=== PATIENT | female | born 1965 | race Caucasian/White ===

== ENCOUNTER 2018-08-02 17:24 | Emergency (ER) | payer OTHER ==
--- NOTE | 2018-08-04 11:52 | UC ---
Discharge - Sign-Out/Discharge Documenting (check all that apply): Post-Discharge Follow Up All imaging exams completed and their final reports reviewed: No Studies - Discharge Plan Condition: Stable Disposition: LEFT WITHOUT BEING SEEN Referrals: Sav Hamm MD [Primary Care Provider] - - Billing Disposition and Condition Condition: STABLE Disposition: Left Without Being Seen
== END 2018-08-02 17:48 | disposition left against medical advice (07) ==
LOC: UCEAST 17:24

== ENCOUNTER 2019-02-02 13:14 | Emergency (ER) | payer OTHER ==
--- OUTSIDE RECORDS SUMMARY | 2019-02-02 13:21 | XMS REPORT | Continuity of Care Document ---
:1965 External Reference #:[id number] Author Name Apple Hedrick Care Team Providers Name Role Phone Sav Hamm III, MD Primary Care Physician Unavailable Payers Date Identification Numbers Payment Provider Subscriber Effective: 2012 Policy Number: [id number] [employer] Number: [id number] [id number] PayID: [id number] [place] [address] Expires: 2012 Policy Number: [id number] [facility] [employer] Number: [id number] [address] PayID: [id number] [place] [address] Advance Directives Description No Information Available Problems Date Description Provider Status Onset: 08/26/2016 Pain in right foot Sotero ESPINOZA Faustin Active Onset: 08/19/2017 Pure hypercholesterolemia Sav Hamm M.D. Active Onset: 08/19/2017 Low back pain Sav Hamm M.D. Active Onset: 10/20/2017 Localized, primary osteoarthritis Nneka Park MD Active of the pelvic region and thigh Onset: 01/08/2018 Obstructive sleep apnea syndrome Chely Brennan DNP, Active RN, DAYANARA-BC Onset: 01/08/2018 Malaise and fatigue Chely Brennan DNP, Active RN, BAND TUMBLER-BC Onset: 03/18/2018 Trochanteric bursitis Nneka Park MD Active Onset: 03/18/2018 Other specific joint derangements Nneka Park MD Active of right hip, not elsewhere classified Onset: 03/19/2018 Acquired hallux rigidus Tobi Hedrick MD Active Onset: 11/03/2011 Acute upper respiratory infection Sav Hamm M.D. Inactive Inactive: 08/26/2016 Onset: 02/04/2012 Shoulder joint pain Sav Hamm M.D. Inactive Inactive: 08/26/2016 Onset: 07/12/2012 Malaise and fatigue Sav Hamm M.D. 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 Tobacco Use Start: Unknown Never Smoked Cigarettes ETOH Use Rarely consumes alcohol Tobacco Use Start: Unknown Patient has never smoked Recreational Drug Use Denies Drug Use Smoking Status Reviewed: 01/27/19 Patient has never smoked Exercise Type/Frequency Exercises regularly Allergies, Adverse Reactions, Alerts Date Description Reaction Status Severity Comments 05/23/2008 Sulfa Active Medications Medication Date Status Form Strength Qnty SIG Indications Ordering Provider No Active 08/04 Active Unknown Medications Omeprazole 06/[address] 20mg 30cap 1 by mouth R10.9 Milad /2017 s once daily ESPINOZA Celaya - 08/03 Azithromycin 04/08 Hx Tablets 250mg 6tabs two tabs J02.9 day one, Varn, N.P. - one daily 04/18 till Astepro 04/08 Hx Solution 0.15% 30ml 2 J02.9 inhalations Varn, N.P. - in each 08/03 nostril twice daily Nitrofurantoin 01/08 Hx Capsules 100mg 14cap 1 by mouth N39.0 Cheryl Monohyd s twice a day Paul, - x 7 days M.D. 03/01 Valium 12/01 Hx Tablets 5mg 2tabs take 1-2 tabs 30 min MD Xavier - prior to 01/07 Blood Glucose 03/31 Hx Kit W/Device 1unit check blood R42 Milad Monitoring /2015 s sugar at ESPINOZA Celaya System - least twice 01/07 daily. 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 Hyclate /2014 by mouth x1 Tung Hamm M.D. 05/03 Fluticasone 06/15 Hx Suspension 50mcg/Act 1unit 1 squirts 473.8 Barbara Propionate s Tung Obrien nostril qd M.DRicardo 06/08 prn /2017 Clarithromycin 05/23 Hx Tablets 500mg 20tab 1 po bid 461.0 Barbara /2012 Tung Moody M.D. 06/15 Azithromycin 11/05 Hx Tablets 250mg 6tabs 2 tabs po 466.0 Mary Jo /2011 qd x1 day, Jp, - 1 tab po qd N.P. 08 x 4 days /2012 Prednisone 11/05 Hx Tablets 10mg 30tab 5 tab x2 466.0 Mary Jo /2011 s day, 4 tab Jp, - x 2day, 3 N.P. 08 tab x day, 2 tab x2 day, 1 tab x 2day Cheratussin ac 11/02 Hx Syrup 100-10mg/ 236ml 5-10 ml po 465.9 Mary Jo /2011 5ML q4-6h prn Jp, - N.P. 05/23 Proair HFA 11/02 Hx Aerosol 108(90Bas 1inha 2 puffs 465.9 Mary Jo /2011 e) mcg/ac ler inhaled Jp, - q4-6h prn N.P. 05/23 Tessalon Perles 11/02 Hx Capsules 100mg 20cap 100 mg po 465.9 Mary Jo /2011 s tid prn Jp, - N.PRicardo 05/23 Amoxicillin 09/07 Hx Tablets 500mg 30tab 1 po tid Sav Daniels s for 10 days Tung Hamm M.D. 09/17 Valium 04/06 Hx Tablets 5mg 2tabs 1 tablet 1 Dir hour prior Fazal, - to mri march Nesha 08/27 take second if needed Amoxicillin/Cla 11/03 Hx Tablets 500-125mg 20tab 1 po bid 465.9 Sav Daniels vulanate Vanessa Price M.D. 02/03 Fexofenadine 03/18 Hx Tablets 180mg 90tab 1 po qd prn Sav Daniels Tung Price M.D. 08/27 Zithromax Z-Vimal 01/09 Hx Tablets 250mg 1Pack as per Sav Daniels /2009 directions Tung Hamm M.D. 11/03 Tessalon Perles 01/09 Hx Capsules 100mg 30cap 1-2 po tid Sav Daniels s prn Tung Hamm M.D. 11/03 Pre- 08/01 Hx Tablets qd Sav Daniels Tung Hamm M.D. 01/04 Nasonex Hx Suspension 50mcg/Act 1unit 2 Sprays Sav Daniels / s Both Tung Hamm Nostrils angela Jeffries 05/23 Naproxen Hx Tablets 500mg 90tab 1 PO bid Berry, / s MD Beto - 06/14 Flexeril Hx Tablets 10mg 30tab 1 PO tid Berry, / s prn MD Beto - 06/14 Advil Hx Tablets 200mg 2 PO bid Unknown / prn - 06/08 Glucolax Hx as Directed Unknown /0000 Every Other - Day 01/[address] 90cap 1 po qd Unknown /0000 s - 04/02 Faby Allergy / Hx Tablets 60mg 30tab 1 po qd prn Unknown /0000 s - 06/08 Astepro Hx Solution 0.15% one puff Unknown /0000 both sides - once per Guaifenesin-Cod Hx Solution 100-10mg/ As per [facility] Unknown eine /0000 [facility] - visit on 08/0111/24/15 for c/o cough [Bronchitis ]. Medications Administered in Office Medication Date Status Form Strength Qnty SIG Indications Ordering Provider Triamcinolone 10/26/ Administered Injection Tobi (Kenalog) 2017 MD Ryley Triamcinolone 10/26/ Administered Injection Tobi (Kenalog) 2017 MD Ryley Triamcinolone 09/28/ Administered Injection Zaneb (Kenalog) 2017 MD Xavier Triamcinolone 03/18/ Administered Injection Zaneb (Kenalog) 2017 MD Xavier Depomedrol 80MG 06/29/ Administered Injection Apple 2011 ALIZA Guajardo Immunizations CPT Code Status Date Vaccine Lot # 53824 Given 08/19/2017 Influenza Virus Vaccine, Quadrivalent, Split, [id number] Preservative Free Q2035 Given 09/12/2015 Afluria Vaccine [id number] Given 06/16/2014 Tetanus And Diptheria (Td) For Adult Use Preservative Free 24188 Given 10/11/2013 Flu Vaccine Split Virus Preservative Free For [id number] Indiv [id number] Older Q2038 Given 08/27/2012 Fluzone Vaccine [id number] Vital Signs Date Vital Result Comment 01/27/2019 1:37pm Height 66 inches 5'6" Weight 139.00 lb Heart Rate 73 /min BP Systolic Sitting 106 mmHg BP Diastolic Sitting 72 mmHg Body Temperature 98.3 F O2 % BldC Oximetry 96 % BMI (Body Mass Index) 22.4 kg/m2 10/26/2018 1:10pm Height 66 inches 5'6" Heart Rate 72 /min BP Systolic 130 mmHg BP Diastolic 78 mmHg Body Temperature 97.7 F Pain Level 0 09/28/2018 2:28pm Height 66 inches 5'6" Weight 145.00 lb BP Systolic 110 mmHg BP Diastolic 64 mmHg Respiratory Rate 18 /min Pain Level 1 BMI (Body Mass Index) 23.4 kg/m2 09/13/2018 1:07pm Height 65.5 inches 5'5.50" Weight 142.00 lb Heart Rate 68 /min Respiratory Rate 15 /min Body Temperature 96.3 F Pain Level 2 BMI (Body Mass Index) 23.3 kg/m2 08/04/2018 8:45am Height 65.5 inches 5'5.50" Weight 142.12 lb Heart Rate 68 /min BP Systolic Sitting 108 mmHg Lue reg cuff BP Diastolic Sitting 72 mmHg Lue reg cuff Respiratory Rate 18 /min O2 % BldC Oximetry 98 % On Ra BMI (Body Mass Index) 23.3 kg/m2 06/28/2018 3:40pm Height 65.5 inches 5'5.50" Weight 142.00 lb Heart Rate 70 /min BP Systolic Sitting 108 mmHg BP Diastolic Sitting 72 mmHg O2 % BldC Oximetry 96 % BMI (Body Mass Index) 23.3 kg/m2 06/08/2018 11:31am Height 65.5 inches 5'5.50" Weight 144.75 lb Heart Rate 70 /min BP Systolic 94 mmHg BP Diastolic 62 mmHg Body Temperature 97.5 F O2 % BldC Oximetry 97 % BMI (Body Mass Index) 23.7 kg/m2 04/08/2018 9:38am Weight 142.00 lb Heart Rate 66 /min BP Systolic 112 mmHg BP Diastolic 68 mmHg Body Temperature 97.9 F O2 % BldC Oximetry 99 % 03/19/2018 8:34am Height 66 inches 5'6" Weight 140.00 lb Heart Rate 72 /min BP Systolic 104 mmHg BP Diastolic 68 mmHg Respiratory Rate 12 /min Body Temperature 97.4 F BMI (Body Mass Index) 22.6 kg/m2 03/18/2018 8:19am Height 66 inches 5'6" Weight 145.00 lb BP Systolic 114 mmHg BP Diastolic 66 mmHg Respiratory Rate 20 /min Pain Level 0 BMI (Body Mass Index) 23.4 kg/m2 03/02/2018 8:21am Height 66 inches 5'6" Weight 144.00 lb Heart Rate 68 /min BP Systolic Sitting 122 mmHg Rue reg cuff BP Diastolic Sitting 80 mmHg Rue reg cuff Respiratory Rate 16 /min O2 % BldC Oximetry 98 % On Ra BMI (Body Mass Index) 23.2 kg/m2 01/19/2018 2:51pm Height 66 inches 5'6" Weight 145.00 lb BP Systolic 124 mmHg BP Diastolic 70 mmHg Respiratory Rate 18 /min Pain Level 2 BMI (Body Mass Index) 23.4 kg/m2 01/08/2018 9:08am Height 66 inches 5'6" Weight 145.25 lb no shoes Heart Rate 68 /min BP Systolic Sitting 110 mmHg Lue reg cuff BP Diastolic Sitting 74 mmHg Lue reg cuff Respiratory Rate 16 /min Body Temperature 98.0 F O2 % BldC Oximetry 98 % On Ra BMI (Body Mass Index) 23.4 kg/m2 12/08/2017 1:56pm Height 66 inches 5'6" Weight 135.00 lb per pt Heart Rate 52 /min reg BP Systolic Sitting 100 mmHg Lue BP Diastolic Sitting 70 mmHg Lue Respiratory Rate 16 /min Pain Level 7 B/L hips BMI (Body Mass Index) 21.8 kg/m2 11/02/2017 9:03am Height 66 inches 5'6" Weight 146.00 lb Heart Rate 72 /min BP Systolic Sitting 112 mmHg BP Diastolic Sitting 72 mmHg Respiratory Rate 14 /min O2 % BldC Oximetry 99 % BMI (Body Mass Index) 23.6 kg/m2 Neck Circumference in inches 13.5 10/20/2017 8:31am Height 66 inches 5'6" Weight 144.00 lb BP Systolic 110 mmHg BP Diastolic 64 mmHg Respiratory Rate 18 /min Pain Level 5 BMI (Body Mass Index) 23.2 kg/m2 08/19/2017 1:22pm Height 66 inches 5'6" Weight 144.00 lb Heart Rate 70 /min BP Systolic Sitting 100 mmHg BP Diastolic Sitting 64 mmHg Body Temperature 98.4 F O2 % BldC Oximetry 97 % BMI (Body Mass Index) 23.2 kg/m2 06/23/2017 12:04pm Weight 144.50 lb Heart Rate 60 /min BP Systolic Sitting 110 mmHg BP Diastolic Sitting 60 mmHg Respiratory Rate 16 /min 08/26/2016 11:30am Height 65.5 inches 5'5.50" Weight 142.00 lb Heart Rate 60 /min BP Systolic Sitting 108 mmHg BP Diastolic Sitting 74 mmHg Body Temperature 97.1 F O2 % BldC Oximetry 97 % BMI (Body Mass Index) 23.3 kg/m2 03/31/2016 9:59am Weight 144.75 lb Heart Rate 58 /min BP Systolic Sitting 109 mmHg BP Diastolic Sitting 74 mmHg Body Temperature 97.0 F O2 % BldC Oximetry 98 % 07/24/2015 9:25am Weight 142.00 lb Heart Rate 52 /min BP Systolic Sitting 118 mmHg BP Diastolic Sitting 66 mmHg Body Temperature 98.0 F O2 % BldC Oximetry 98 % 05/03/2015 4:08pm Weight 139.50 lb Heart Rate 60 /min BP Systolic Sitting 110 mmHg BP Diastolic Sitting 76 mmHg Body Temperature 97.6 F O2 % BldC Oximetry 98 % 04/02/2015 3:32pm Weight 139.00 lb Heart Rate 68 /min BP Systolic Sitting 118 mmHg BP Diastolic Sitting 70 mmHg Body Temperature 98.9 F O2 % BldC Oximetry 98 % 10/11/2013 11:58am Weight 140.00 lb Heart Rate 66 /min BP Systolic Sitting 118 mmHg BP Diastolic Sitting 64 mmHg Body Temperature 96.7 F 07/01/2013 2:14pm Weight 143.25 lb Heart Rate 65 /min BP Systolic Sitting 100 mmHg BP Diastolic Sitting 68 mmHg 06/15/2013 1:36pm Weight 142.00 lb Heart Rate 83 /min Body Temperature 97.3 F 05/23/2013 3:04pm Weight 141.25 lb Heart Rate 65 /min BP Systolic Sitting 107 mmHg BP Diastolic Sitting 71 mmHg Body Temperature 97.2 F O2 % BldC Oximetry 99 % 11/05/2012 4:28pm Height 65.5 inches 5'5.50" Weight 142.00 lb Heart Rate 68 /min BP Systolic Sitting 110 mmHg BP Diastolic Sitting 72 mmHg Body Temperature 98.6 F O2 % BldC Oximetry 99 % BMI (Body Mass Index) 23.3 kg/m2 11/02/2012 11:37am Height 65.5 inches 5'5.50" Weight 143.00 lb Heart Rate 96 /min BP Systolic Sitting 98 mmHg BP Diastolic Sitting 66 mmHg Body Temperature 98.6 F O2 % BldC Oximetry 97 % BMI (Body Mass Index) 23.4 kg/m2 09/03/2012 10:07am Height 65.5 inches 5'5.50" Weight 141.00 lb Heart Rate 68 /min BP Systolic Sitting 112 mmHg BP Diastolic Sitting 84 mmHg BMI (Body Mass Index) 23.1 kg/m2 08/27/2012 11:42am Height 65.5 inches 5'5.50" Weight 139.00 lb Heart Rate 74 /min BP Systolic Sitting 114 mmHg BP Diastolic Sitting 70 mmHg BMI (Body Mass Index) 22.8 kg/m2 07/12/2012 3:02pm Height 65 inches 5'5" Weight 142.00 lb Heart Rate 62 /min BP Systolic Sitting 100 mmHg BP Diastolic Sitting 62 mmHg BMI (Body Mass Index) 23.6 kg/m2 02/20/2012 11:18am Height 65 inches 5'5" Weight 135.00 lb Heart Rate 65 /min BP Systolic 95 mmHg BP Diastolic 61 mmHg BMI (Body Mass Index) 22.5 kg/m2 02/04/2012 3:39pm Height 65.5 inches 5'5.50" Weight 143.00 lb Heart Rate 76 /min BP Systolic Sitting 118 mmHg BP Diastolic Sitting 80 mmHg BMI (Body Mass Index) 23.4 kg/m2 11/03/2011 3:01pm Height 65.5 inches 5'5.50" Weight 141.50 lb Heart Rate 64 /min BP Systolic Sitting 102 mmHg BP Diastolic Sitting 70 mmHg BMI (Body Mass Index) 23.2 kg/m2 03/18/2010 10:56am Weight 145.00 lb Heart Rate 64 /min BP Systolic Sitting 100 mmHg BP Diastolic Sitting 70 mmHg Body Temperature 97.6 F 01/17/2010 3:33pm Weight 143.00 lb Heart Rate 76 /min BP Systolic Sitting 112 mmHg BP Diastolic Sitting 70 mmHg Body Temperature 98.8 F 01/09/2010 4:08pm Weight 141.00 lb Heart Rate 80 /min BP Systolic Sitting 112 mmHg BP Diastolic Sitting 72 mmHg 02/06/2009 1:59pm BP Systolic Sitting 110 mmHg BP Diastolic Sitting 70 mmHg 01/04/2009 9:20am Height 65.5 inches 5'5.50" Weight 141.00 lb Heart Rate 68 /min BP Systolic Sitting 114 mmHg BP Diastolic Sitting 72 mmHg BMI (Body Mass Index) 23.1 kg/m2 08/01/2008 11:33am Height 65.5 inches 5'5.50" Weight 137.00 lb Heart Rate 68 /min BP Systolic Sitting 98 mmHg BP Diastolic Sitting 62 mmHg BMI (Body Mass Index) 22.4 kg/m2 05/23/2008 2:31pm Height 65.5 inches 5'5.50" Weight 143.00 lb Heart Rate 72 /min BP Systolic Sitting 104 mmHg BP Diastolic Sitting 70 mmHg BMI (Body Mass Index) 23.4 kg/m2 06/14/2007 2:54pm Height 65.5 inches 5'5.50" Weight 142.00 lb Heart Rate 80 /min BP Systolic Sitting 120 mmHg BP Diastolic Sitting 70 mmHg BMI (Body Mass Index) 23.3 kg/m2 Results Test Date Facility Test Result H/L Range Note Order 06/08/2018 [facility] Poc blood [address] [place] [address] [phone] CBC Auto Diff 06/08/2018 [facility] White Blood 6.1 10^3/uL N 3.5-10.[address] [place] [address] [phone] Red Blood Count 4.48 10^6/uL N 4.00-5.40 Hemoglobin 13.3 g/dL N 12.0-16.0 Hematocrit 40 % N 35-47 Mean Corpuscular Volume 89 fL N 80-97 Mean Corpuscular Hemoglobin 30 pg N 27-31 Mean Corpuscular HGB Conc 34 g/dL N 31-36 Red Cell Distribution Width 14 % N 10.5-15 Platelet Count 244 10^3/uL N 150-450 Mean Platelet Volume 8.4 um3 N 7.4-10.4 Abs Neutrophils 3.3 10^3/uL N 1.5-7.7 Abs Lymphocytes 2.1 10^3/uL N 1.0-4.8 Abs Monocytes 0.5 10^3/uL N 0-0.8 Abs Eosinophils 0.1 10^3/uL N 0-0.6 Abs Basophils 0 10^3/uL N 0-0.2 Abs Nucleated RBC 0 10^3/uL Granulocyte % 54.7 % N 38-83 Lymphocyte % 34.9 % N 25-47 Monocyte % 8.3 % High 0-7 Eosinophil % 1.5 % N 0-6 Basophil % 0.6 % N 0-2 Nucleated Red Blood Cells % 0.1 Comp Metabolic Panel 06/08/2018 [facility] Sodium 139 mmol/L N 135-[address] [place] [address] [phone] Potassium 4.0 mmol/L N 3.5-5.0 Chloride 103 mmol/L N 101-111 Co2 Carbon Dioxide 29 mmol/L N 22-32 Anion Gap 7 mmol/L N 2-11 Glucose 87 mg/dL N 70-100 Blood Urea Nitrogen 18 mg/dL N 6-24 Creatinine 0.82 mg/dL N 0.51-0.95 BUN/Creatinine Ratio 22.0 High 8-20 Calcium 9.6 mg/dL N 8.6-10.3 Total Protein 6.8 g/dL N 6.4-8.9 Albumin 4.5 g/dL N 3.2-5.2 Globulin 2.3 g/dL N 2-4 Albumin/Globulin Ratio 2.0 N 1-3 Total Bilirubin 0.40 mg/dL N 0.2-1.0 Alkaline Phosphatase 57 U/L N 34-104 Alt 17 U/L N 7-52 Ast 18 U/L N 13-39 Egfr Non- 73.2 >60 Egfr 88.6 >60 1 Laboratory test 06/08/2018 [facility] TSH (Thyroid 1.97 mcIU/mL N 0.34-5.[address] Stim [place]orm) [place] [address] [phone] D Dimer Quantitative 310 ng/mL High Less Than 230 2 Lipase 30 U/L N 11.0-82.0 Urinalysis Profile 06/08/2018 [facility] Urine Color Yellow [address] [place] [address] [phone] Urine Appearance Clear Urine Specific Elgin 1.014 N 1.010-1.030 Urine pH 7.0 N 5-9 Urine Urobilinogen Negative Negative Urine Ketones Negative Negative Urine Protein Negative Negative Urine Leukocytes Negative Negative Urine Blood Negative Negative Urine Nitrite Negative Negative Urine Bilirubin Negative Negative Urine Glucose Negative Negative Laboratory test 06/08/2018 [facility] Lyme Disease Negative Negative [address] [place] [address] [phone] Laboratory test 04/08/2018 [facility] Culture SEE RESULT [address] [place] [address] [phone] Urine Culture And 01/08/2018 [facility] Urine SEE RESULT 5 , [address] [place] [address] [phone] Ua Routine 01/08/2018 [employer] Ua Specific 1.005 [place] Ua PH 7 Ua Color yellow Ua Appera clear Ua WBC trace Ua Protein neg Ua Glucose norm Ua Ketones neg Ua Bilirubin neg Ua Urobilinogen norm Ua Nitrite neg Ua Occult Blood neg Laboratory test 07/22/2017 [facility] C Reactive 3.18 mg/L N < 5.00 [address] [place] [address] [phone] Erythrocyte Sed Rate 7 mm/Hr N 0-30 8 CBC Auto Diff 07/22/2017 [facility] White Blood 5.3 10^3/uL N 3.5-10.[address] [place] [address] [phone] Red Blood Count 4.33 10^6/uL N 4.0-5.4 Hemoglobin 12.7 g/dL N 12.0-16.0 Hematocrit 38 % N 35-47 Mean Corpuscular Volume 88 fL N 80-97 Mean Corpuscular Hemoglobin 29 pg N 27-31 Mean Corpuscular HGB Conc 33 g/dL N 31-36 Red Cell Distribution Width 13 % N 10.5-15 Platelet Count 251 10^3/uL N 150-450 Mean Platelet Volume 9 um3 N 7.4-10.4 Abs Neutrophils 2.0 10^3/uL N 1.5-7.7 Abs Lymphocytes 2.4 10^3/uL N 1.0-4.8 Abs Monocytes 0.5 10^3/uL N 0-0.8 Abs Eosinophils 0.4 10^3/uL N 0-0.6 Abs Basophils 0 10^3/uL N 0-0.2 Abs Nucleated RBC 0 10^3/uL N Granulocyte % 37.4 % Low 38-83 Lymphocyte % 44.9 % N 25-47 Monocyte % 9.1 % High 1-9 Eosinophil % 7.7 % High 0-6 Basophil % 0.9 % N 0-2 Nucleated Red Blood Cells % 0 N Connective Tissue 07/22/2017 [facility] Anti-Nuclear Antibody 0.2 U N [address] [place] [address] [phone] Cyclic Citrullinated Peptide <15.6 U N 10 Interpretation See Comment N 11 Laboratory test 07/22/2017 [facility] TSH (Thyroid 2.96 mcIU/mL N 0.34-5.[address] Stim [place]orm) [place] [address] [phone] Lyme Disease Serology Negative N Negative 13 Comp Metabolic Panel 07/22/2017 [facility] Sodium 138 mmol/L N 133-[address] [place] [address] [phone] Potassium 3.9 mmol/L N 3.5-5.0 Chloride 103 mmol/L N 101-111 Co2 Carbon Dioxide 28 mmol/L N 22-32 Anion Gap 7 mmol/L N 2-11 Glucose 91 mg/dL N 70-100 Blood Urea Nitrogen 23 mg/dL N 6-24 Creatinine 0.79 mg/dL N 0.51-0.95 BUN/Creatinine Ratio 29.1 High 8-20 Calcium 9.3 mg/dL N 8.6-10.3 Total Protein 6.6 g/dL N 6.4-8.9 Albumin 4.2 g/dL N 3.2-5.2 Globulin 2.4 g/dL N 2-4 Albumin/Globulin Ratio 1.8 N 1-3 Total Bilirubin 0.50 mg/dL N 0.2-1.0 Alkaline Phosphatase 48 U/L N 34-104 Alt 11 U/L N 7-52 Ast 15 U/L N 13-39 Egfr Non- 76.7 N >60 Egfr 98.7 N >60 14 Lipid Profile 07/22/2017 [facility] Triglycerides 73 mg/dL N 15 (Trig/Chol/HDL) [address] [place] [address] [phone] Cholesterol 235 mg/dL N 16 HDL Cholesterol 64.3 mg/dL N 17 LDL Cholesterol 156 mg/dL N 18 Laboratory test 07/22/2017 [facility] Creatine 77 U/L N 10- 223 19 finding Kinase(CK) [place] [address] [phone] Aldolase 3.9 U/L N <7.7 20 Laboratory 07/31/2016 [facility] HPV Rna Negative N Negative 21, test finding [address] Ww/Reflex 22 [place] [address] Genotype [phone] Laboratory 07/31/2016 [facility] Cytology SEE RESULT BELOW [address] [place], [place] [id number] [phone] Pertussis PCR 11/24/2015 [facility] Bordetella Nasopharyngeal s N [address] Source <SEE NOTE> [place], [place] [id number] [phone] Bordetella pertussis PCR Negative N 25 Bordetella parapertussis PCR Negative N 26 Laboratory test 07/24/2015 [facility] Urine Culture And SEE RESULT [address] [place] [address] [phone] Ua Routine 07/24/2015 [employer] Ua Specific [place] 1.010 Ua PH 7 Ua Color yellow Ua Appera cloudy Ua WBC small Ua Protein neg Ua Glucose neg Ua Ketones neg Ua Bilirubin neg Ua Urobilinogen neg Ua Nitrite neg Ua Occult Blood neg Celiac Panel 05/07/2015 [facility] Tissue Transglutaminase <1.2 U/mL N [address] [place] [address] [phone] Immunoglobulin A 191 mg/dL N 61 - 356 Celiac Interpretation See Comment N 29 Urinalysis Profile 04/04/2015 [facility] Urine Color Straw N [address] [place] [address] [phone] Urine Appearance Clear N Urine Specific [place] 1.005 Low 1.010-1.030 Urine pH 8.0 N 5-9 Urine Urobilinogen Negative N Negative Urine Ketones Negative N Negative Urine Protein Negative N Negative Urine Leukocytes Negative N Negative Urine Blood Negative N Negative Urine Nitrite Negative N Negative Urine Bilirubin Negative N Negative Urine Glucose Negative N Negative Laboratory test 04/04/2015 [facility] C Reactive 2.76 mg/L N < 5.00 [address] [place] [address] [phone] Erythrocyte Sed Rate 9 mm/Hr N 0-14 Comp Metabolic Panel 04/04/2015 [facility] Sodium 139 mmol/L N 133-[address] [place] [address] [phone] Potassium 3.6 mmol/L N 3.5-5.0 Chloride 102 mmol/L N 101-111 Co2 Carbon Dioxide 31 mmol/L N 22-32 Anion Gap 6 mmol/L N 2-11 Glucose 101 mg/dL High 70-100 Blood Urea Nitrogen 15 mg/dL N 6-24 Creatinine 0.80 mg/dL N 0.51-0.95 BUN/Creatinine Ratio 18.8 N 8-20 Calcium 9.4 mg/dL N 8.6-10.3 Total Protein 6.8 g/dL N 6.4-8.9 Albumin 4.4 g/dL N 3.2-5.2 Globulin 2.4 g/dL N 2-4 Albumin/Globulin Ratio 1.8 N 1-3 Total Bilirubin 0.50 mg/dL N 0.2-1.0 Alkaline Phosphatase 52 U/L N 34-104 Alt 13 U/L N 7-52 Ast 16 U/L N 13-39 Egfr Non- 76.6 N >60 Egfr 98.5 N >60 31 CBC Auto Diff 04/04/2015 [facility] White Blood 6.6 10^3/uL N 4.8-10.[address] [place] [address] [phone] Red Blood Count 4.30 10^6/uL N 4.0-5.4 Hemoglobin 13.0 g/dL N 12.0-16.0 Hematocrit 39 % N 35-47 Mean Corpuscular Volume 90 fL N 80-97 Mean Corpuscular Hemoglobin 30 pg N 27-31 Mean Corpuscular HGB Conc 34 g/dL N 31-36 Red Cell Distribution Width 13 % N 10.5-15 Platelet Count 243 10^3/uL N 150-450 Mean Platelet Volume 9 um3 N 7.4-10.4 Abs Neutrophils 3.6 10^3/uL N 1.5-7.7 Abs Lymphocytes 2.1 10^3/uL N 1.0-4.8 Abs Monocytes 0.4 10^3/uL N 0-0.8 Abs Eosinophils 0.3 10^3/uL N 0-0.6 Abs Basophils 0.1 10^3/uL N 0-0.2 Abs Nucleated RBC 0 10^3/uL N Granulocyte % 55.2 % N 38-83 Lymphocyte % 32.5 % N 25-47 Monocyte % 6.2 % N 1-9 Eosinophil % 5.2 % N 0-6 Basophil % 0.9 % N 0-2 Nucleated Red Blood Cells % 0.1 N CBC Auto Diff 11/24/2013 [facility] [facility] White Blood 6.4 10^3/uL 4.8-10.[address] [place] [address] [phone] Red Blood Count 4.48 10^6/uL 4.0-5.4 Hemoglobin 13.2 g/dL 12.0-16.0 Hematocrit 39 % 35-47 Mean Corpuscular Volume 87 fL 80-97 Mean Corpuscular Hemoglobin 30 pg 27-31 Mean Corpuscular HGB Conc 34 g/dL 31-36 Red Cell Distribution Width 14 % 10.5-15 Platelet Count 270 10^3/uL 150-450 Mean Platelet Volume 8 um3 7.4-10.4 Abs Neutrophils 3.6 10^3/uL 1.5-7.7 Abs Lymphocytes 2.1 10^3/uL 1.0-4.8 Abs Monocytes 0.4 10^3/uL 0-0.8 Abs Eosinophils 0.2 10^3/uL 0-0.6 Abs Basophils 0 10^3/uL 0-0.2 Abs Nucleated RBC 0.01 10^3/uL Granulocyte % 56.9 % 38-83 Lymphocyte % 33.3 % 25-47 Monocyte % 5.9 % 1-9 Eosinophil % 3.3 % 0-6 Basophil % 0.6 % 0-2 Nucleated Red Blood Cells % 0.1 Laboratory test 11/24/2013 [facility] Aspergillus <0.35 kU/L [address] [place] [address] [phone] Aspergillus IgG Antibodies 53.7 mg/L <=102 33 Immunoglobulin G 967 mg/dL 767 - 1590 34 Immunoglobulin M 138 mg/dL 37 - 286 35 Immunoglobulin A 195 mg/dL 61 - 356 36 Immunoglobulin E 19.6 kU/L 37 S.Pneumoniae Igg 11/24/2013 [facility] S. pneumoniae 5.9 g/mL >=2.3 AB [address] Type 1 [place] [address] [phone] S. pneumoniae Type 2 IgG AB 4.1 g/mL >=1.0 S. pneumoniae Type 3 IgG AB 3.0 g/mL >=1.8 S. pneumoniae Type 4 IgG AB 1.5 g/mL >=0.6 S. pneumoniae Type 5 IgG AB 8.3 g/mL >=10.7 S. pneumoniae Type 8 IgG AB 15.5 g/mL >=2.9 S. pneumoniae Type 9N IgG AB 5.5 g/mL >=9.2 S. pneumoniae Type 12F IgG AB 0.9 g/mL >=0.6 S. pneumoniae Type 14 IgG AB 12.9 g/mL >=7.0 S. pneumoniae Type 17F IgG AB 18.3 g/mL >=7.8 S. pneumoniae Type 19F IgG AB 7.5 g/mL >=15.0 S. pneumoniae Type 20 IgG AB 5.7 g/mL >=1.3 S. pneumoniae Type 22F IgG AB 30.3 g/mL >=7.2 S. pneumoniae Type 23F IgG AB 25.7 g/mL >=8.0 S. pneumoniae Type 6B IgG AB 5.8 g/mL >=4.7 S. pneumoniae Type 10A IgG AB 13.6 g/mL >=2.9 S. pneumoniae Type 11A IgG AB 8.7 g/mL >=2.4 S. pneumoniae Type 7F IgG AB 21.2 g/mL >=3.2 S. pneumoniae Type 15B IgG AB 8.3 g/mL >=3.3 S. pneumoniae Type 18C IgG AB 3.0 g/mL >=3.3 S. pneumoniae Type 19A IgG AB 12.0 g/mL >=17.1 S. pneumoniae Type 9V IgG AB 11.4 g/mL >=2.6 S. pneumoniae Type 33F IgG AB 8.7 g/mL >=1.7 38 Laboratory test 11/24/2013 [facility] Tetanus Toxoid 0.86 IU/mL [address] [place] [address] [phone] Laboratory test 08/01/2013 [facility] Vitamin B12 288 pg/mL 180-[address] 4 [place] [address] [phone] Erum (Anti-Nuclear AB) Screen Negative Negative 40 Lyme Disease Serology Negative Negative 41 CBC No Diff 06/10/2013 [facility] White Blood 6.7 10^3/uL 4.8 -10.[address] [place] [address] [phone] Red Blood Count 4.20 10^6/uL 4.0-5.4 Hemoglobin 12.6 g/dL 12.0-16.0 Hematocrit 37 % 35-47 Mean Corpuscular Volume 89 fL 80-97 Mean Corpuscular Hemoglobin 30 pg 27-31 Mean Corpuscular HGB Conc 34 g/dL 31-36 Red Cell Distribution Width 13 % 10.5-15 Platelet Count 246 10^3/uL 150-450 Mean Platelet Volume 9 um3 7.4-10.4 Liver Function 06/10/2013 [facility] Total Protein 6.1 g/dL Low 6.2-8.[address] [place], [place] [id number] [phone] Albumin 4.0 g/dL 3.6-5.4 Globulin 2.1 g/dL 2-4 Albumin/Globulin Ratio 1.9 1-3 Total Bilirubin 0.8 mg/dL 0.4-1.5 Direct Bilirubin < 0.1 mg/dL Low 0.1-0.5 Indirect Bilirubin (SEE NOTE) mg/dL 0.3-1.0 42 Alkaline Phosphatase 53 U/L 30-110 Alt 14 U/L 14-54 Ast 17 U/L 12-42 CBC Auto Diff 04/05/2013 [facility] White Blood 7.1 10^3/uL 4.8-10.[address] [place] [address] [phone] Red Blood Count 4.12 10^6/uL 4.0-5.4 Hemoglobin 12.4 g/dL 12.0-16.0 Hematocrit 37 % 35-47 Mean Corpuscular Volume 89 fL 80-97 Mean Corpuscular Hemoglobin 30 pg 27-31 Mean Corpuscular HGB Conc 34 g/dL 31-36 Red Cell Distribution Width 13 % 10.5-15 Platelet Count 228 10^3/uL 150-450 Mean Platelet Volume 9 um3 7.4-10.4 Abs Neutrophils 3.5 10^3/uL 1.5-7.7 Abs Lymphocytes 2.5 10^3/uL 1.0-4.8 Abs Monocytes 0.6 10^3/uL 0-0.8 Abs Eosinophils 0.4 10^3/uL 0-0.6 Abs Basophils 0.1 10^3/uL 0-0.2 Abs Nucleated RBC 0 10^3/uL Granulocyte % 49.6 % 38-83 Lymphocyte % 35.9 % 25-47 Monocyte % 7.8 % 1-9 Eosinophil % 6.0 % 0-6 Basophil % 0.7 % 0-2 Nucleated Red Blood Cells % 0 Laboratory 04/05/2013 [facility] TSH (Thyroid 2.16 miu/mL 0.34-5.60 test finding [address] [place] [id number] Horm) [phone] Pertussis PCR 11/23/2012 [facility] Bordetella Nasopharyngeal s [address] Source <SEE NOTE> [place] [address] [phone] Bordetella Result See Comment 44 Blood Culture 11/23/2012 [facility] Blood (SEE NOTE) [address] [place] [address] [phone] Urine Culture And 11/23/2012 [facility] Urine (SEE NOTE) [address] [place] [address] [phone] Laboratory test 11/23/2012 [facility] Lactic Acid 1.8 mmol/L High 0.5-[address] .6 [place] [id number] [phone] Comp Metabolic 11/23/2012 [facility] Sodium 138 mmol/L 133-[address] [place] [address] [phone] Potassium 3.5 mmol/L 3.5-5.0 Chloride 103 mmol/L 101-111 Co2 Carbon Dioxide 29.0 mmol/L 22-32 Anion Gap 6.0 mmol/L 2-11 Glucose 97 mg/dL 70-100 Blood Urea Nitrogen 14 mg/dL 6-24 Creatinine 0.70 mg/dL 0.50-1.40 BUN/Creatinine Ratio 20.0 8-20 Calcium 9.5 mg/dL 8.1-9.9 Total Protein 7.3 g/dL 6.2-8.1 Albumin 4.5 g/dL 3.6-5.4 Globulin 2.8 g/dL 2-4 Albumin/Globulin Ratio 1.6 1-3 Total Bilirubin 0.6 mg/dL 0.4-1.5 Alkaline Phosphatase 67 U/L 30-110 Alt 19 U/L 14-54 Ast 21 U/L 12-42 Egfr Non- 90.1 >60 Egfr 115.9 >60 47 Laboratory test finding 11/23/2012 [facility] Inr 0.94 0.82- 1.[address] [place] [address] [phone] Activated Partial Thrombo Time 29.3 sec 22.18-37.18 CBC Auto Diff 11/23/2012 [facility] White Blood 7.5 10^3/uL 4.8-10.[address] [place] [address] [phone] Red Blood Count 4.75 10^6/uL 4.0-5.4 Hemoglobin 14.0 g/dL 12.0-16.0 Hematocrit 42 % 35-47 Mean Corpuscular Volume 89 fL 80-97 Mean Corpuscular Hemoglobin 30 pg 27-31 Mean Corpuscular HGB Conc 33 g/dL 31-36 Red Cell Distribution Width 13 % 10.5-15 Platelet Count 248 10^3/uL 150-450 Mean Platelet Volume 8 um3 7.4-10.4 Abs Neutrophils 6.0 10^3/uL 1.5-7.7 Abs Lymphocytes 0.8 10^3/uL Low 1.0-4.8 Abs Monocytes 0.5 10^3/uL 0-0.8 Abs Eosinophils 0.1 10^3/uL 0-0.6 Abs Basophils 0 10^3/uL 0-0.2 Abs Nucleated RBC 0 10^3/uL Granulocyte % 81.1 % 38-83 Lymphocyte % 10.1 % Low 25-47 Monocyte % 6.9 % 1-9 Eosinophil % 1.3 % 0-6 Basophil % 0.6 % 0-2 Nucleated Red Blood Cells % 0.1 Urinalysis 11/23/2012 [facility] Urine Color Yellow [address] [place] [address] [phone] Urine Appearance Clear Urine Specific [place] 1.012 1.010-1.030 Urine Esterase Negative Negative Urine Nitrate Negative Negative Urine Urobilinogen Negative E.U./dL Negative Urine Protein Negative mg/dL Negative Urine pH 7.5 5-9 Urine Blood Negative Negative Urine Ketones Negative mg/dL Negative Urine Bilirubin Negative Negative 49 Urine Glucose Negative mg/dL Negative Blood Culture 11/23/2012 [facility] Blood Culture (SEE NOTE) 50 [address] [place] [address] [phone] Rapid Influenza A 11/23/2012 [facility] Rapid Influenza (SEE NOTE) 51 B Antigen [address] [facility] [place] [address] [phone] Urinalysis 09/03/2012 [facility] Urine Color Yellow W/Microscopic [address] [place], [place] [id number] [phone] Urine Appearance Clear Urine Specific [place] 1.011 1.010-1.030 Urine Esterase 2+ Abnormal Negative Urine Nitrate Negative Negative Urine Urobilinogen Negative Negative Urine Protein Negative Negative Urine pH 7.0 5-9 Urine Blood Negative Negative Urine Ketones Negative Negative Urine Bilirubin Negative Negative Urine Glucose Negative Negative Urine WBC 1+ (<10 /hpf) None Seen Urine RBC None Seen None Seen Urine Epithelial Cells 2+ Squamous /hpf None Seen Urine Culture And 09/03/2012 [facility] Urine Culture (SEE NOTE ) 52 Sensitivities [address] [place] [address] [phone] Laboratory test 09/03/2012 [facility] Hemoglobin A1c 5.3 5-7 finding Ua Routine 09/03/2012 [facility] Ua Specific 1.005 [place] Ua PH 5.0 Ua Color yellow Ua Appera clear Ua WBC ++ Ua Protein neg Ua Glucose neg Ua Ketones neg Ua Bilirubin small Ua Urobilinogen neg Ua Nitrite neg Ua Occult Blood trace DR Hamm's 08/30/2012 [facility] TSH (Thyroid 1.38 0.34- 5.60 53 Lab Panel 101 [facility] Stimulating MIU/[place] [address] Horm) [phone] Comp Metabolic 08/30/2012 [facility] Sodium 137 mmol/L 133- 145 Panel [address] [place] [address] [phone] Potassium 3.9 mmol/L 3.5-5.0 Chloride 105 mmol/L 101-111 Co2 Carbon Dioxide 28.0 mmol/L 22-32 Anion Gap 4.0 mmol/L 2-11 Glucose 94 mg/dL 70-100 Blood Urea Nitrogen 13 mg/dL 6-24 Creatinine 0.80 mg/dL 0.50-1.40 BUN/Creatinine Ratio 16.3 8-20 Calcium 9.0 mg/dL 8.1-9.9 Total Protein 5.8 GM/DL Low 6.2-8.1 Albumin 3.8 GM/DL 3.6-5.4 Globulin 2.0 GM/DL 2-4 Albumin/Globulin Ratio 1.9 1-3 Total Bilirubin 1.0 mg/dL 0.1-1.0 54 Alkaline Phosphatase 41 U/L 30-110 Alt 15 U/L 14-54 Ast 20 U/L 12-42 Egfr Non- 77.2 >60 Egfr 99.3 >60 55 Lipid Profile 08/30/2012 [facility] Triglycerides 39 mg/dL Low 40-200 (Trig/Chol/HDL) [address] [place] [address] [phone] Cholesterol 199 mg/dL Less than 200 56 HDL Cholesterol 67 mg/dL High 40-60 57 Cholesterol/HDL Ratio 3.0 AVERAGE 1-4.44 LDL Cholesterol 124.2 mg/dL High Less Than 100 CBC Auto 08/30/2012 [facility] White Blood 4.0 10^3/uL Low 4.8 -10.[address] [place] [address] [phone] Red Blood Count 3.94 10^6/uL Low 4.0-5.4 Hemoglobin 11.9 g/dL Low 12.0-16.0 Hematocrit 35 % 35-47 Mean Corpuscular Volume 89 fL 80-97 Mean Corpuscular Hemoglobin 30 pg 27-31 Mean Corpuscular HGB Conc 34 g/dL 31-36 Red Cell Distribution Width 13 % 10.5-15 Platelet Count 229 10^3/uL 150-450 Mean Platelet Volume 9 um3 7.4-10.4 Abs Neutrophils 1.6 10^3/uL 1.5-7.7 Abs Lymphocytes 1.7 10^3/uL 1.0-4.8 Abs Monocytes 0.4 10^3/uL 0-0.8 Abs Eosinophils 0.3 10^3/uL 0-0.6 Abs Basophils 0 10^3/uL 0-0.2 Abs Nucleated RBC 0 10^3/uL Granulocyte % 39.7 % 38-83 Lymphocyte % 41.8 % 25-47 Monocyte % 9.6 % High 1-9 Eosinophil % 8.1 % High 0-6 Basophil % 0.8 % 0-2 Nucleated Red Blood Cells % 0 Laboratory test 03/01/2009 [facility] Clotest N^NEGATIVE^CAROL [address] [place] [address] [phone] Laboratory test 01/22/2009 [facility] Amylase 70 U/L 30-[address] [place] [address] [phone] Lipase 37 U/L 22-51 Laboratory test 01/22/2009 [facility] Erythrocyte Sed 3 MM/HR 0-[address] [place] [address] [phone] Comp Metabolic 01/22/2009 [facility] Sodium 141 mmol/L 135- [address] [place] [address] [phone] Potassium 4.2 mmol/L 3.5-5.0 Chloride 106 mmol/L 101-111 Co2 (Carbon Dioxide) 31.0 mmol/L 22-32 Anion Gap 4.0 mmol/L 2-11 58 Glucose 79 mg/dL 70-100 59 BUN 17 mg/dL 6-24 Creatinine 0.70 mg/dL 0.50-1.40 One Over Creatinine 1.40 BUN/Creatinine Ratio 24.3 High 8-20 Calcium 9.1 mg/dL 8.1-9.9 60 Total Protein 6.0 GM/DL Low 6.2-8.1 Albumin 3.6 GM/DL 3.6-5.4 Globulin 2.4 GM/DL 2-4 Albumin/Globulin Ratio 1.5 1-3 Bilirubin Total 0.6 mg/dL 0.4-1.5 Alkaline Phosphatase 63 U/L 30-110 Alt (SGPT) 14 U/L 14-54 Ast (Sgot) 17 U/L 12-42 CBC With 01/22/2009 [facility] White Blood 5.2 CUMM 4.8-10.8 Electronic Diff [address] [place] [address] [phone] Red Cell Count 4.29 CUMM 4.2-5.4 Hemoglobin 13.0 g/dL 12.0-16.0 Hematocrit 38 % 35-47 Mean Corpuscular Volume 88 um3 79-97 Mean Corpuscular Hemoglob 30 pg 27-31 Mean Corpuscular HGB Cone 35 g/dL 32-36 Redcell Distribution WDTH 13 % 10.5-15 Platelet Count 270 CUMM 150-450 Mean Platelet Volume 8.1 um3 7.4-10.4 Gran % 50.5 % 38-83 Lymph % 34.3 % 25-47 Mononuclear % 10.7 % High 1-9 Eosinophil % 3.9 % 0-6 Basophil % 0.6 % 0-2 Abs Lymphs 1.8 1.0-4.8 Abs Mononuclear 0.6 0-0.8 Absolute Neutrophil Count 2.6 1.5-7.7 Abs Eosinophils 0.2 0-0.6 Abs Basophils 0 0-0.2 Laboratory test 08/01/2008 [facility] Erythrocyte Sed 4 MM/HR 0-15 [address] [place] [address] [phone] CBC With 08/01/2008 [facility] White Blood 5.9 CUMM 4.8-10.8 Electronic Diff [address] [place] [address] [phone] Red Cell Count 4.47 CUMM 4.2-5.4 Hemoglobin 13.6 g/dL 12.0-16.0 Hematocrit 40 % 35-47 Mean Corpuscular Volume 89 um3 79-97 Mean Corpuscular Hemoglob 31 pg 27-31 Mean Corpuscular HGB Cone 34 g/dL 32-36 Redcell Distribution WDTH 13 % 10.5-15 Platelet Count 274 CUMM 150-450 Mean Platelet Volume 8.2 um3 7.4-10.4 Gran % 55.9 % 38-83 Lymph % 31.9 % 20-45 Mononuclear % 7.3 % 1-9 Eosinophil % 4.4 % 0-6 Basophil % 0.5 % 0-2 Abs Lymphs 1.9 1.0-4.8 Abs Mononuclear 0.4 0-0.8 Absolute Neutrophil Count 3.3 1.5-7.7 Abs Eosinophils 0.3 0-0.6 Abs Basophils 0 0-0.2 Laboratory test 08/01/2008 [facility] Thyroxine Free 0.95 NG/ML 0.61-1.24 [address] [place] [address] [phone] TSH 1.66 MIU/ML 0.34-5.60 Comp Metabolic Panel 08/01/2008 [facility] Sodium 137 mmol/L 135-[address] [place] [address] [phone] Potassium 4.9 mmol/L 3.5-5.0 Chloride 102 mmol/L 101-111 Co2 (Carbon Dioxide) 31.0 mmol/L 22-32 Anion Gap 4.0 mmol/L 2-11 63 Glucose 81 mg/dL 70-100 64 BUN 20 mg/dL 6-24 Creatinine 0.9 mg/dL 0.5-1.4 One Over Creatinine 1.11 BUN/Creatinine Ratio 22.2 High 8-20 Calcium 9.4 mg/dL 8.1-9.9 65 Total Protein 7.1 GM/DL 6.2-8.1 Albumin 4.2 GM/DL 3.6-5.4 Globulin 2.9 GM/DL 2-4 Albumin/Globulin Ratio 1.4 1-3 Bilirubin Total 1.0 mg/dL 0.4-1.5 Alkaline Phosphatase 69 U/L 30-110 Alt (SGPT) 23 U/L 14-54 Ast (Sgot) 21 U/L 12-42 Ua Stat 01/15/2008 [facility] Ua Color YELLOW [address] [place] [address] [phone] Appearance-Urine HAZY Bilirubin-Ur NEGATIVE Negative Blood-Urine NEGATIVE Negative Esterase-Urine NEGATIVE Negative Glucose-Urine NEGATIVE Negative Ketones-Urine NEGATIVE Negative Nitrite NEGATIVE Negative PH-Urine 8.0 5-9 Protein-Urine NEGATIVE Negative Weyksbrnrbvx-Vk-YTZ NEGATIVE Negative Specific [place]-Ur 1.013 1.010-1.030 CBC With 01/15/2008 [facility] White Blood 8.2 CUMM 4.8-10.8 Electronic Diff [address] [place] [place] [address] [phone] Abs Basophils 0 0-0.2 Abs Eosinophils 0.1 0-0.6 Absolute Neutrophil Count 5.4 1.5-7.7 Abs Lymphs 1.9 1.0-4.8 Abs Mononuclear 0.7 0-0.8 Basophil % 0.6 % 0-2 Hematocrit 33 % Low 35-47 Hemoglobin 11.2 g/dL Low 12.0-16.0 Eosinophil % 1.4 % 0-6 Gran % 65.6 % 38-83 Lymph % 23.7 % 20-45 Mean Corpuscular HGB Cone 34 g/dL 32-36 Mean Corpuscular Hemoglob 30 pg 27-31 Mean Corpuscular Volume 89 um3 79-97 Mean Platelet Volume 8.5 um3 7.4-10.4 Mononuclear % 8.7 % 1-9 Platelet Count 204 CUMM 150-450 Red Cell Count 3.70 CUMM Low 4.2-5.4 Redcell Distribution WDTH 14 % 10.5-15 Laboratory test 06/17/2007 [facility] Erythrocyte Sed 1 MM/HR 0-[address] [place] [address] [phone] Urinalysis 06/17/2007 [facility] Ua Color YELLOW W/Microscopic [address] [place] [address] [phone] Appearance-Urine CLEAR Bilirubin-Ur NEGATIVE Negative Blood-Urine NEGATIVE Negative Epith Cells-Ur RARE Esterase-Urine NEGATIVE Negative Glucose-Urine NEGATIVE Negative Ketones-Urine NEGATIVE Negative Nitrite NEGATIVE Negative PH-Urine 7.0 5-9 Protein-Urine NEGATIVE Negative RBC-Urine 0-1 0-2 Fdwcohgtyjaq-Vw-EUV NEGATIVE Negative Specific [place]-Ur 1.005 Low 1.010-1.030 CBC With 06/17/2007 [facility] White Blood 6.0 CUMM 4.8-10.8 Electronic Diff [address] [place] [address] [phone] Abs Basophils 0 0-0.2 Abs Eosinophils 0.2 0-0.6 Absolute Neutrophil Count 3.4 1.5-7.7 Abs Lymphs 1.9 1.0-4.8 Abs Mononuclear 0.6 0-0.8 Basophil % 0.6 % 0-2 Hematocrit 36 % 35-47 Hemoglobin 12.5 g/dL 12.0-16.0 Eosinophil % 3.1 % 0-6 Gran % 55.9 % 38-83 Lymph % 30.9 % 20-45 Mean Corpuscular HGB Cone 34 g/dL 32-36 Mean Corpuscular Hemoglob 30 pg 27-31 Mean Corpuscular Volume 88 um3 79-97 Mean Platelet Volume 8.1 um3 7.4-10.4 Mononuclear % 9.5 % High 1-9 Platelet Count 250 CUMM 150-450 Red Cell Count 4.15 CUMM Low 4.2-5.4 Redcell Distribution WDTH 13 % 10.5-15 Laboratory test 06/17/2007 [facility] Hemoglobin A1c 5.7 % < 6.0 [address] [place] [address] [phone] Comp Metabolic 06/17/2007 [facility] One Over 1.[address] [place] [address] [phone] Anion Gap 7.0 mmol/L 2-11 67 Albumin/Globulin Ratio 1.3 1-3 Albumin 3.6 GM/DL 3.6-5.4 Alkaline Phosphatase 41 U/L 30-110 Alt (SGPT) 14 U/L 14-54 Ast (Sgot) 17 U/L 12-42 BUN 11 mg/dL 6-24 Calcium 8.7 mg/dL 8.7-10.2 Chloride 105 mmol/L 101-111 Co2 (Carbon Dioxide) 24.0 mmol/L 22-32 Globulin 2.7 GM/DL 2-4 Glucose 91 mg/dL 70-105 Potassium 4.2 mmol/L 3.5-5.0 Sodium 136 mmol/L 135-145 Bilirubin Total 0.8 mg/dL 0.4-1.5 Total Protein 6.3 GM/DL 6.2-8.1 BUN/Creatinine Ratio 13.8 8-20 Creatinine 0.8 mg/dL 0.5-1.4 1 Because ethnic data is not always readily available, this report includes an eGFR for both -Americans and non- Americans. The National Kidney Disease Education Program (NKDEP) does not endorse the use of the MDRD equation for patients that are not between the ages of 18 and 70, are , have extremes of body size, muscle mass, or nutritional status, or are non- or non-. According to the National Kidney Foundation, irrespective of diagnosis, the stage of the disease is based on the level of kidney function: Stage Description GFR(mL/min/1.73 m(2)) 1 Kidney damage with normal or decreased GFR 90 2 Kidney damage with mild decrease in GFR 60-89 3 Moderate decrease in GFR 30-59 4 Severe decrease in GFR 15-29 5 Kidney failure <15 (or dialysis) 2 Please note: The following may produce a false positive D Dimer test: - Rheumatoid factor greater than 60 IU/ml - Plasma hemoglobin greater than 0.05 gm/dl - Bilirubin greater than 50 mg/dl - Lipids greater than 1000 mg/dl - FDP greater than 20 ug/ml 3 No evidence of antibodies to B. burgdorferi detected. False negative results may occur in recently infected patients (<=2 weeks) due to low or undetectable antibody levels to B. burgdorferi. If recent exposure is suspected, a second sample should be collected and tested in 2-4 weeks. Test Performed by: [facility] [address] [place] [address] 4 SEE RESULT BELOW Name: YA ARROYO : [address]: Anastacia Lira NP Acct: [id number] Unit: [id number] AGE: 52 Location: [facility] Re04/08/18 SEX: F Status: REG REF SPEC: [id number] ARRON: 04/08/18-[address]: Anastacia Lira NP REQ: [id number] RECD: 04/08/18 STATUS: COMP _ SOURCE: THROAT SPDESC: ORDERED: Throat Culture COMMENTS: [id number] Procedure Result Reported Site Throat Culture Final 04/10/18- 1140 ML Organism 1 NORMAL NEHA Quantity 2+ Throat cultures are clinically indicated to detect the presence of group A strep, arcanobacterium and yeast. In certain cases, predominating organisms will be reported. * ML - Main Lab . END OF REPORT DEPARTMENT OF PATHOLOGY, [address] [address] Charlie Velazquez M.D. Director [facility] # [id number] SEE RESULT BELOW Name: YA ARROYO : [address]: Cheryl Miller MD Acct: [id number] Unit: [id number] AGE: 52 Location: [facility] Re01/08/18 SEX: F Status: REG REF SPEC: [id number] ARRON: 01/08/18-[address] [facility] [address]: Cheryl Miller MD REQ: [id number] RECD: 01/08/18 STATUS: COMP _ SOURCE: URINE SPDESC: ORDERED: Urine Culture COMMENTS: [id number] Urine Source: Random Procedure Result Reported Site Urine Culture Final 01/10/18- 0754 ML No growth of clinically significant organisms * ML - [facility] . END OF REPORT * ML=Testing performed at Main Lab DEPARTMENT OF PATHOLOGY, [address] [address] Charlie Velazquez M.D. Director [facility] # [id number] 7 Acute inflammation: >10.00 8 FASTING 9 REFERENCE VALUE <=1.0 (Negative) 10 REFERENCE VALUE <20.0 (Negative) 11 Tests for antibodies to dsDNA and LUIS antigens are not performed automatically unless the ERUM result is > or= 3.0 U. Studies performed at [facility] indicate that positive ERUM results <3.0 U are rarely accompanied by positive second order tests. Test Performed by: [place] [address] 12 FASTING 13 Serologic response to B. burgdorferi infection is not detected, but cannot rule out early infection during which low or undetectable antibody levels to B. burgdorferi may be present. If clinically indicated, a new serum specimen should be submitted in 7-14 days. Test Performed by: [place] [address] 14 Because ethnic data is not always readily available, this report includes an eGFR for both -Americans and non- Americans. The National Kidney Disease Education Program (NKDEP) does not endorse the use of the MDRD equation for patients that are not between the ages of 18 and 70, are , have extremes of body size, muscle mass, or nutritional status, or are non- or non-. According to the National Kidney Foundation, irrespective of diagnosis, the stage of the disease is based on the level of kidney function: Stage Description GFR(mL/min/1.73 m(2)) 1 Kidney damage with normal or decreased GFR 90 2 Kidney damage with mild decrease in GFR 60-89 3 Moderate decrease in GFR 30-59 4 Severe decrease in GFR 15-29 5 Kidney failure <15 (or dialysis) 15 Desirable <150 Borderline high 150-199 High 200-499 Very High >500 16 Desirable <200 Borderline high 200-239 High >239 17 Low <40 Desirable: 40-60 High: >60 18 Desirable: <100 mg/dL Near Optimal: 100-129 mg/dL Borderline High: 130-159 mg/dL High: 160-189 mg/dL Very High: >189 mg/dL 19 FASTING 20 Test Performed by: [address] [place] [address] 21 [id number] 22 The high-risk HPV types detected by the assay include: 16, 18, 31, 33, 35, 39, 45, 51, 52, 56, 58, 59, 66, and 68. 23 SEE RESULT BELOW Name: AY ARROYO : [address]: Ugo Barros MD Acct: [id number] Unit: [id number] AGE: 51 Location: [facility] Re07/31/16 SEX: F Status: REG REF SPEC: [id number] ARRON: 07/31/16-[address]: Ugo Barros MD REQ: [id number] RECD: 07/31/16129 STATUS: ALLYSON MENJIVAR DR: Sav Hamm III, MD _ ORDERED: IMAGE ANALYSIS, HPV/Thin Prep, HPV 16/18 GENE COMMENTS: [id number] FINAL DIAGNOSIS Negative for Intraepithelial lesion or Malignancy A. Ectocervical/Endocervical Specimen Adequacy: Satisfactory of evaluation Transformation zone component identified Patient Information: HPV: High risk HPV RNA testing regardless of pap results. HPV 16/18 Genotype Reflex Actual Specimen Date: 07/31/16 LMP If Unknown: 2012 ?: N Post Menopausal?: Y Hysterectomy?: N Previous Abnormal Pap Smears?:N Date Time Test Result Flag (u) Normal Range 07/31/16 1400 HPV RNA RFLX GE Negative Negative The high-risk HPV types detected by the assay include: 16, 18, 31, 33, 35, 39, 45, 51, 52, 56, 58, 59, 66, and 68. Signed (signature on file) YVES Conway(ASC) 08/01 1327 This Pap test was evaluated with the assistance of the resmioPrep Test Imaging System. Due to cytologic findings at the court advocate microscope, comprehensive manual rescreening by a Bleaching Machine Operator may be required. The Pap Smear is a screening test designed to aid in the detection of premalignant and malignant conditions of the uterine cervix. It is not a diagnostic procedure and should not be used as the sole means of detecting cervical cancer. Both false- positive and false- negative reports do occur. Depending on your risk status, a Pap smear should be obtained and evaluated every 1-3 years. END OF REPORT * ML=Testing performed at Main Lab DEPARTMENT OF PATHOLOGY, [address] [place] [address] Charlie Velazquez M.D. Director [place] # [id number] RUN DATE: 08/01/16 [facility] LAB LIVE PAGE 1 Patient: YA ARROYO [id number] (Continued) 24 Nasopharyngeal swab 25 REFERENCE VALUE Not Applicable 26 REFERENCE VALUE Not Applicable ADDITIONAL INFORMATION Laboratory developed test. Test Performed by: [facility] - [address] [address] Principal Account Clerk: Xavier Mo II, M.D., Ph.D. 27 SEE RESULT BELOW Name: YA ARROYO : [address]: Horace Edwards NP Acct: [id number] Unit: [id number] AGE: 50 Location: [facility] Re07/24/15 SEX: F Status: REG REF SPEC: [id number] ARRON: 07/24/15-1003 [facility] DR: Horace Edwards NP REQ: [id number] RECD: 07/24/15-1155 STATUS: COMP _ SOURCE: URINE SPDESC: ORDERED: Urine Culture Procedure Result Verified Site Urine Culture Final 07/26/15- 09 ML Organism 1 NORMAL NEHA [place] Count 50-75,000 (Many) CFU/ML * ML - MAIN LAB ([facility]) . END OF REPORT * ML=Testing performed at Main Lab DEPARTMENT OF PATHOLOGY, [address] [place] [address] Charlie Velazquez M.D. Director [facility] # [id number] 28 REFERENCE VALUE <4.0 (Negative) Test Performed by: [place] [address] Principal Account Clerk: Xavier Mo II, M.D., Ph.D. 29 Negative serology. Celiac disease unlikely. However, approximately 10% of patients with celiac disease are seronegative. Also, patients who are already adhering to a gluten-free diet may be seronegative. If celiac disease is highly clinically suspected, consider HLA-DQ typing. Test Performed by: [place] [address] Principal Account Clerk: Xavier Mo II, M.D., Ph.D. 30 Acute inflammation: >10.00 31 Because ethnic data is not always readily available, this report includes an eGFR for both -Americans and non- Americans. The National Kidney Disease Education Program (NKDEP) does not endorse the use of the MDRD equation for patients that are not between the ages of 18 and 70, are , have extremes of body size, muscle mass, or nutritional status, or are non- or non-. According to the National Kidney Foundation, irrespective of diagnosis, the stage of the disease is based on the level of kidney function: Stage Description GFR(mL/min/1.73 m(2)) 1 Kidney damage with normal or decreased GFR 90 2 Kidney damage with mild decrease in GFR 60-89 3 Moderate decrease in GFR 30-59 4 Severe decrease in GFR 15-29 5 Kidney failure <15 (or dialysis) 32 Class 0 (Negative <0.35) Test Performed by: [place] [address] Principal Account Clerk: Ramon Long III, M.D. 33 Test Performed by: [place] [address] Principal Account Clerk: Ramon Long III, M.D. 34 Test Performed by: [place] [address] Principal Account Clerk: Ramon Long III, M.D. 35 Test Performed by: [place] [address] Principal Account Clerk: Ramon Long III, M.D. 36 Test Performed by: [place] [address] Principal Account Clerk: Ramon Long III, M.D. 37 -- REFERENCE VALUE -- Mean 13.2 +1SD 41.0 +2SD 127.0 Test Performed by: [place] [address] Principal Account Clerk: Ramon Long III, M.D. 38 Either of the two following conditions would be consistent with a normal response to Streptococcus pneumoniae vaccination: Antibody concentrations greater than or equal to the reference value for at least 50% of serotypes in either a pre- or post-vaccination sample. Antibody concentrations increased by 2-fold or greater for at least 50% of serotypes when comparing the pre- to the post-vaccination results. Optimal cut-offs (reference values) were derived by measuring serotype-specific IgG antibody levels in an adult cohort of 100 healthy individuals (previously unvaccinated) before and after pneumococcal vaccination and identifying the antibody level for each serotype that included the largest number of individuals with a negative response (below cut-off) pre-vaccination and a positive response (above cut-off) post-vaccination. All 23 serotypes assessed by this assay are included in the Pneumovax 23 vaccine. IgG antibody concentrations following Pneumovax 23 administration are a reflection of an individual's humoral immune response to polysaccharide antigens. Serotypes 1, 3, 4, 5, 6A (6), 14, 19F (19), 23F (23), 6B (26), 7F (51), 18C (56), 19A (57) and 9V (68) are included in the Prevnar-13 conjugate vaccine. Antibody concentrations following Prevnar-13 administration are a reflection of an individual's response to protein-conjugated antigens. Serotypes 2, 8, 9N (9), 12F (12), 17F (17), 20, 22F (22), 10A (34), 11A (43), 15B (54) and 33F (70) are present only in the Pneumovax 23 vaccine and not in Prevnar-13. Responses to these 11 serotypes are a reflection of an individual's response to polysaccharide antigens. Serotype 6A is only present in Prevnar-13. Test Performed by: [place] [address] Principal Account Clerk: Ramon Long III, M.D. 39 The minimum level of protective antibody in the normal population is between 0.01 and 0.15 IU/mL. The majority of vaccinated individuals should demonstrate protective levels of antibody > 0.15 IU/mL. Test Performed by: [place] [address] Principal Account Clerk: Ramon Long III, M.D. 40 @Sample frozen by [id number] at 1606 on 08/01/13. 41 Serologic response to B. burgdorferi infection is not detected, but cannot rule out early infection during which low or undetectable antibody levels to B. burgdorferi may be present. If clinically indicated, a new serum specimen should be submitted in 7-14 days. Test Performed by: [place] [address] Principal Account Clerk: Ramon Long III, M.D. 42 Unable to calculate Ind Bili as D Bili is <0.1 Unable to calculate Ind Bili as D Bili is <0.1 43 Nasopharyngeal swab 44 RESULT: Negative for Bordetella pertussis/parapertussis DNA -- REFERENCE VALUE -- Not Applicable Laboratory developed test. Test Performed by: [place] [id number] Principal Account Clerk: Ramon Long III, M.D. 45 RUN DATE: 11/28/12 [facility] LAB LIVE PAGE 1 RUN TIME: [address] [place], [place] [address] Specimen Inquiry Name: YA ARROYO : [address]: Shelly Devine DO Acct: [id number] Unit: [id number] AGE: 47 Location: ED Re11/23/12 SEX: F Status: DEP ER SPEC: [id number] ARRON: 11/23/12-1709 [facility] DR: Shelly Devine DO REQ: [id number] RECD: 11/23/12 STATUS: ERIKA MENJIVAR DR: Noris DICKEY MD,[facility] _ SOURCE: BLOOD,VENO SPDES: ORDERED: Blood Cult Procedure Result Verified Site Aerobic Culture Bottle Final 11/28/12- 1727 ML No Growth Day 5 Anaerobic Culture Bottle Final 11/28/12- 1727 ML No Growth Day 5 END OF REPORT * ML=Testing performed at Main Lab DEPARTMENT OF PATHOLOGY, [facility] [place], [place] [address] Charlie Velazquez M.D. Director [facility] Permit #[id number] 46 RUN DATE: 11/25/12 [facility] LAB LIVE PAGE 1 RUN TIME: 1050 [facility] [place], [place] [address] Specimen Inquiry Name: YA ARROYO : [address]: Shelly Devine DO Acct: [id number] Unit: [id number] AGE: 47 Location: ED Re11/23/12 SEX: F Status: DEP ER SPEC: [id number] ARRON: 11/23/[address]: Shelly Devine DO REQ: [id number] RECD: 11/23/12 STATUS: ERIKA MENJIVAR DR: Sav Hamm III, MD _ SOURCE: URINE SPDESC: ORDERED: Urine Culture Procedure Result Verified Site Urine Culture Final 11/25/12- 1049 ML No Growth Day 2 (<1,000 CFU/mL) END OF REPORT * ML=Testing performed at Main Lab DEPARTMENT OF PATHOLOGY, [address] [place] [address] Charlie Velazquez M.D. Director [facility] Permit #[id number] 47 Because ethnic data is not always readily available, this report includes an eGFR for both -Americans and non- Americans. The National Kidney Disease Education Program (NKDEP) does not endorse the use of the MDRD equation for patients that are not between the ages of 18 and 70, are , have extremes of body size, muscle mass, or nutritional status, or are non- or non-. According to the National Kidney Foundation, irrespective of diagnosis, the stage of the disease is based on the level of kidney function: Stage Description GFR(mL/min/1.73 m(2)) 1 Kidney damage with normal or decreased GFR 90 2 Kidney damage with mild decrease in GFR 60-89 3 Moderate decrease in GFR 30-59 4 Severe decrease in GFR 15-29 5 Kidney failure <15 (or dialysis) 48 The INR(International Normalized Ratio) was adopted by the World Health Organization (WHO) in 1982 as a standardized system of reporting PT (Prothrombin Time). The Centers for Disease Control (CDC) states that reporting of PT results in INR only is the preferred method. Recommended INR for Patients on Oral Anticoagulants Prophylaxis 2.0 - 3.0 Treatment of thrombosis 2.0 - 3.0 Prevention of embolism 2.0 - 3.0 Prevention of embolism from prosthetic heart valves 2.5 - 3.5 49 Effective 10/13/12, bilirubin confirmation by ictotest is discontinued. False-positive results for bilirubin may occur due to color interference from large amounts of blood in the urine, very concentrated urine, or drugs that discolor urine such as phenazopyridine(Pyridium). 50 RUN DATE: 11/28/12 [facility] LAB LIVE PAGE 1 RUN TIME: [address] [place] [address] Specimen Inquiry Name: YA ARROYO : [address]: Shelly Devine DO Acct: [id number] Unit: [id number] AGE: 47 Location: ED Re11/23/12 SEX: F Status: DEP ER SPEC: [id number] ARRON: 11/23/[address]: Shelly Devine DO REQ: [id number] RECD: 11/23/12 STATUS: ERIKA MENJIVAR DR: Noris DICKEY MD,[facility] _ SOURCE: BLOOD,VENO SPDES: ORDERED: Blood Cult Procedure Result Verified Site Aerobic Culture Bottle Final 11/28/12- 1726 ML No Growth Day 5 Anaerobic Culture Bottle Final 11/28/12- 1726 ML No Growth Day 5 END OF REPORT * ML=Testing performed at Main Lab DEPARTMENT OF PATHOLOGY, [facility] [place], [place] [address] Charlie Velazquez M.D. Director [facility] Permit #[id number] 51 RUN DATE: 11/23/12 [facility] LAB LIVE PAGE 1 RUN TIME: 1821 [facility] [place], [place] [address] Specimen Inquiry Name: YA ARROYO : [address]: Shelly Devine DO Acct: [id number] Unit: [id number] AGE: 47 Location: ED Re11/23/12 SEX: F Status: REG ER SPEC: [id number] ARRON: 11/23/12-[address]: Shelly Devine DO REQ: [id number] RECD: 11/23/12 STATUS: ERIKA MENJIVAR DR: Noris DICKEY MDSav _ SOURCE: NASAL ASPI SPDESC: ORDERED: Rapid Flu A B COMMENTS: Verbal to [id number] by [id number] at 1822 on 11/23/12. Results read back accurately. Procedure Result Verified Site Rapid Influenza A B Antigen Final 11/23/12- 1821 ML Influenza A Antigen Positive by Enzyme Immunoassay Influenza B Antigen Negative by Enzyme Immunoassay Cell culture testing can be performed to confirm negative test results and to assist in detecting other viruses that can produce similar clinical symptoms. Please notify Microbiology Lab if further testing is desired. END OF REPORT * ML=Testing performed at Main Lab DEPARTMENT OF PATHOLOGY, [facility] [place], [place] [address] Charlie Velazquez M.D. Director [facility] Permit #[id number] 52 RUN DATE: 09/05/12 [facility] LAB LIVE PAGE 1 RUN TIME: 4047 [facility] [place], [place] [address] Specimen Inquiry Name: YA ARROYO : [address]: Sav Hamm III, MD Acct: [id number] Unit: [id number] AGE: 47 Location: [facility] Re09/03/12 SEX: F Status: REG REF SPEC: [id number] ARRON: 09/03/12-[address]: Sav Hamm III, MD REQ: [id number] RECD: 09/03/12 STATUS: COMP _ SOURCE: URINE SPDESC: ORDERED: Urine Culture QUERIES: Medent Number [id number] Procedure Result Verified Site Urine Culture Final 09/05/12- 0850 ML Organism 1 STREP GROUP B Bluff Count 75-100,000 (Many) CFU/ML Organism 2 NORMAL NEHA [place] Count 10-25,000 (Moderate) CFU/ML Susceptibility testing of penicillins and other B-lactams approved by FDA for treatment of Streptococcus pyogenes (Group A Strep) and Streptococcus agalactiae (Group B Strep) is not necessary for clinical purposes and need not be done routinely, since as with vancomycin, resistant strains have not been recognized. (CLSI Q149-T12;p.66) Positive isolates will be saved for one week. Please call the Microbiology Laboratory if further susceptibility testing is needed. END OF REPORT * ML=Testing performed at Main Lab DEPARTMENT OF PATHOLOGY, [address] [address] Charlie Velazquez M.D. Director [facility] Permit #[id number] 53 PT IS FASTING 54 A metabolite of Naproxen, O-desmethylnaproxen, has been shown to interfere with the Jendrassik-Nahun method for measuring total bilirubin. Samples from patients who have taken Naproxen have shown spurious elevation in total bilirubin levels. 55 Because ethnic data is not always readily available, this report includes an eGFR for both -Americans and non- Americans. The National Kidney Disease Education Program (NKDEP) does not endorse the use of the MDRD equation for patients that are not between the ages of 18 and 70, are , have extremes of body size, muscle mass, or nutritional status, or are non- or non-. According to the National Kidney Foundation, irrespective of diagnosis, the stage of the disease is based on the level of kidney function: Stage Description GFR(mL/min/1.73 m(2)) 1 Kidney damage with normal or decreased GFR 90 2 Kidney damage with mild decrease in GFR 60-89 3 Moderate decrease in GFR 30-59 4 Severe decrease in GFR 15-29 5 Kidney failure <15 (or dialysis) 56 Desirable: Less than 200 MG/DL Borderline-High Risk: 200-239 MG/DL High-Risk: 240 MG/DL and over 57 HDL Interpretation: Undesirable: High Risk: Less than 40 MG/DL Desirable: Low Risk: Greater than 60 MG/DL 58 Anion gap measurement may be of limited value in the presence of any alkalosis, especially in a combined acid base disorder. . 59 Note change in reference range as of 07/06/08. The change was based on recommendations from the [place] [employer]. 60 Please note change in reference range effective 08 . 61 PATIENT MAY HAVE RESULTS PER DOCTOR'S AUTHORIZATION. Questions regarding this report should be directed to your doctor. 62 PLEASE NOTE NEW REFERENCE RANGES. 63 Anion gap measurement may be of limited value in the presence of any alkalosis, especially in a combined acid base disorder. . 64 Note change in reference range as of 07/06/08. The change was based on recommendations from the [place] [employer]. 65 Please note change in reference range effective 08 . 66 THERAPEUTIC TARGET FOR THE TREATMENT OF DIABETES MELLITUS PATIENTS IS <7% HBA1C, AND IN SELECTIVE PATIENTS <6.0%. PLEASE REFER TO [place] [employer]ATION DIABETIC CARE GUIDELINES FOR FURTHER INFORMATION. 67 Anion gap measurement may be of limited value in the presence of any alkalosis, especially in a combined acid base disorder. . Procedures Date Code Description Status 10/26/2018 Inj/Aspir, Small Joint/Bursa W/ US Completed 09/28/2018 Inject/Drain Joint/Bursa Major W/O US Completed 06/30/2018 [id number] Mammogram Completed 06/08/2018 98516 EKG Tracing & Interpretation Completed 03/18/201829457 Inject/Drain Joint/Bursa Major W/O US Completed 12/19/2017 23075 Polysomnography Sleep Staging 4+ Parameters Completed 12/01/2017 08270 Sleep Study Unattended,HRT Rate,Oxygen Sat,Resp Completed Effort/Airflow 08/19/2017 05061 Admin & Interp Of Health Risk Assessment w/ Patient Completed 10/17/2016 [id number] Mammogram Completed 10/12/2015 [id number] Mammogram Completed 05/03/2015 22124 EKG Tracing & Interpretation Completed 09/01/2014 [id number] Mammogram Completed 07/01/2013 03881 EEG Recording Awake & Drowsy Completed 04/18/2013 [id number] Mammogram Completed 06/29/2012 22077 Inject/Drain Joint/Bursa Major W/O US Completed 03/31/2012 65933 Rad Shoulder Comp, Min. 2 Views Completed 03/11/2012 [id number] Mammogram Completed 09/04/2009 [id number] Mammogram Completed 03/01/2009 [id number] Colonoscopy Completed Encounters Type Date Location Provider Dx Diagnosis Office Visit 09/28/2018 Orthopedic Nneka Park MD M70.61 Trochanteric 2:30p Services Of C.M.A. bursitis, right hip M16.11 Unilateral primary osteoarthritis, right hip Office Visit 09/13/2018 1:15p Orthopedic Tobi Hedrick M20.22 Hallux rigidus, Services Of left foot Madalyn.M.ARicardo M20.21 Hallux rigidus, right foot Office Visit 08/04/2018 Pulmonology And Chely G47.33 Obstructive sleep 9:00a Sleep Services Of DAYDAY Brennan RN, apnea (adult) [facility] BAND TUMBLER-BC (pediatric) Z68.23 Body mass index (BMI) 23.0-23.9, adult Office Visit 06/28/2018 3:40p [facility] Internal Milad Celaya NP K30 Functional Medicine - dyspepsia [place] Office Visit 06/08/2018 11:40a [facility] Internal Milad Celaya NP R42 Dizziness and Medicine - giddiness [place] R10.9 Unspecified abdominal pain R06.02 Shortness of breath R53.83 Other fatigue Office Visit 04/08/2018 9:40a [facility] Internal Anastacia Lira, J02.9 Acute pharyngitis, Medicine - N.P. unspecified [place] Office Visit 03/19/2018 8:30a Orthopedic Tobi Hedrick M20.21 Hallux rigidus, Services Of right kailey C.M.ARicardo M20.22 Hallux rigidus, left foot Office Visit 03/18/2018 8:45a Orthopedic Nneka Park, M24.851 Ot specific joint Services Of MD cool of C.M.A. right hip, [facility] M70.61 Trochanteric bursitis, right hip Office Visit 03/02/2018 Pulmonology And [place] G47.33 Obstructive sleep 8:30a Sleep Services Of Brennan, DNP, RN, apnea (adult) [facility] DAYANARA-FRANKLIN (pediatric) R53.83 Other fatigue Office Visit 01/19/2018 Orthopedic Nneka Park, M16.11 Unilateral primary 2:45p Services Of MD manjarrez, C.M.A. right hip Office Visit 01/08/2018 Pulmonology And [place] G47.33 Obstructive sleep 9:15a Sleep Services DAYDAY Brennan, apnea (adult) Of [facility] RN, DAYANARA-BC (pediatric) R53.83 Other fatigue Office Visit 01/08/2018 11:20a [facility] Internal Cheryl N39.0 Urinary tract Medicine Tung Miller M.D. infection, site [place] not specified Office Visit 12/08/2017 1:45p Orthopedic Nneka Park M16.11 Unilateral Services Of MD omar Bergman.M.ARicardo osteoarthritis, right hip Office Visit 11/02/2017 8:45a Pulmonology And No Lizzie, R06.83 Snoring Sleep Services Of MD [place] R40.0 Somnolence R52 Pain, unspecified R35.1 Nocturia G47.50 Parasomnia, unspecified Office Visit 10/20/2017 Orthopedic Nneka Park, M16.11 Unilateral primary 8:15a Services Of MD manjarrez, right C.M.A. hip Office Visit 08/19/2017 [facility] Internal Sav Daniels Z00.00 Encntr for general 1:20p Alberto Hamm M.D. adult medical exam [place] w/o abnormal findings E78.00 Pure hypercholesterolemia, unspecified M54.5 Low back pain G47.33 Obstructive sleep apnea (adult) (pediatric) Z23 Encounter for immunization Office Visit 06/23/2017 11:40a [facility] Internal Sav Daniels M79.605 Pain in left Alberto Hamm M.D. leg [place] M79.604 Pain in right leg R53.83 Other fatigue Z13.220 Encounter for screening for lipoid disorders Office Visit 08/26/2016 11:00a [facility] Internal Sotero Faustin M79.674 Pain in right Medicine - [place] HVAC TECHNICIAN RESIDENTIAL toe(s) Rd S90.121A Contusion of right lesser toe(s) w/o damage to nail, init Office Visit 03/31/2016 10:00a [facility] Internal Milad Celaya, R42 Dizziness and Medicine - HVAC TECHNICIAN RESIDENTIAL giddiness [place] Office Visit 07/24/2015 9:30a [facility] Internal Horace Edwards, 788.41 Urinary Frequency Medicine - HVAC TECHNICIAN RESIDENTIAL [place] 788.63 Urgency Of Urination Office Visit 05/03/2015 4:00p [facility] Internal Sav Daniels 786.50 Pain Chest Alberto Hamm M.D. Unspec [place] 789.07 Pain Abdominal Generalized Office Visit 04/02/2015 3:40p [facility] Internal Sav Daniels 789.07 Pain Abdominal Medicine Tung Hamm M.D. Generalized [place] Office Visit 10/11/2013 11:50a [facility] Internal Barbara 477.9 Rhinitis Allergic Medicine Tung Munoz M.D. Cause Unspec [place] V04.81 Need For Prophylactic Vaccination & Inoculation/Influenza Office Visit 07/06/2013 1:00p [facility] Blu SRicardo 780.[address] [facility] Nesha Tavarez Alteration Of Awareness Office Visit 07/01/2013 2:20p [facility] Internal Lise Valle, 345.90 Epilepsy Unspec Medicine - Nesha W/O Intractable [place] Office Visit 06/15/2013 1:50p [facility] Internal Barbara 473.8 Sinusitis Chronic Medicine Tung Munoz M.D. Other [place] Office Visit 05/23/2013 3:10p [facility] Internal Barbara 461.0 Sinusitis Acute Medicine Tung Munoz M.D. Maxillary [place] Office Visit 11/05/2012 4:30p [facility] Internal Mary Jo 466.0 Bronchitis Acute Medicine - Jp, N.P. [place] Office Visit 11/02/2012 11:30a [facility] Internal Mary Jo 465.9 URI Upper Medicine - Jp, N.P. Respiratory [place] Infections Acute Unspec Sites Office Visit 09/03/2012 10:00a [facility] Internal Sav Daniels 782.1 Rash & Other Medicine Tung Hamm M.D. Nonspec Skin [place] Eruption 783.5 Polydipsia Office Visit 08/27/2012 11:20a [facility] Internal Sav Daniels 782.1 Rash & Other Medicine Tung Hamm M.D. Nonspec Skin [place] Eruption V04.81 Need For Prophylactic Vaccination & Inoculation/Influenza Office Visit 08/17/2012 3:30p Orthopedic Octavio Hickey, 718.81 Derangement Joint Services Of M.D. Other Not C.M.A. Elsewhere Class Shoulder Office Visit 07/20/2012 1:00p Orthopedic Apple Guajardo, 840.9 Sprains & Strains Services Of RPA-C Shoulder & Upper C.M.A. Arm Unspec Office Visit 07/12/2012 3:00p [employer] Apprentice Internal Sav Daniels 780.79 Malaise And Alberto Hamm M.D. Fatigue Other [place] Office Visit 06/29/2012 2:30p Orthopedic Apple Guajardo, 726.11 Tendinitis Services Of RPA-C Calcifying C.M.A. Shoulder 726.10 Bursae & Tendon Disorders Shoulder Region Unspec 726.2 Shoulder Region Affections Other Not Elsewhere Class Office Visit 04/29/2012 3:00p Orthopedic Jaspreet Diehl 726.11 Tendinitis Services Of M.DRicardo Calcifying C.M.A. Shoulder Office Visit 03/31/2012 2:45p Orthopedic Jaspreet Diehl 726.11 Tendinitis Services Of M.DRicardo Calcifying C.M.A. Shoulder 840.4 Sprains & Strains Rotator Cuff (Capsule) 726.10 Bursae & Tendon Disorders Shoulder Region Unspec Office Visit 02/20/2012 10:45a Orthopedic Jaspreet Diehl 726.11 Tendinitis Services Of M.DRicardo Calcifying C.M.A. Shoulder 726.32 Epicondylitis Lateral Office Visit 02/04/2012 3:40p [employer] Engine Mechanic Apprentice Internal Sav Daniels 719.41 Pain Joint Alberto Hamm M.D. Shoulder Region [place] Office Visit 11/03/2011 2:40p DO Not Use Diesel Engine Mechanic Apprentice Sav E. 465.9 URI Upper AT Franca Hamm M.D. Respiratory Infections Acute Unspec Sites Office Visit 03/18/2010 10:40a DO Not Use [employer] Apprent[employer] Sav E. 465.9 URI Upper AT Franca Hamm M.D. Respiratory Infections Acute Unspec Sites Office Visit 01/17/2010 3:20p DO Not Use [employer] Sav E. 465.9 URI Upper AT Franca Hamm M.D. Respiratory Infections Acute Unspec Sites Office Visit 01/09/2010 3:40p DO Not Use [employer] Sav E. 466.0 Bronchitis Acute [place] Office Visit 02/06/2009 1:45p [facility] Sav E. 789.00 Pain Abdominal AT Azul Hamm M.D. Unspec Site [place] Office Visit 01/04/2009 9:00a [facility] Sav E. 789.00 Pain Abdominal AT Azul Hamm M.D. Unspec Site [place] Office Visit 08/01/2008 11:15a [facility] Sav E. 780.79 Malaise And AT Azul Hamm M.D. Fatigue Other [place] 789.00 Pain Abdominal Unspec Site Office Visit 05/23/2008 2:15p [facility] Sav E. 703.9 Nail Diseases AT Azul Hamm M.D. Unspec [place] Office Visit 06/14/2007 2:45p [facility] Sav E. 780.4 Dizziness & AT Azul Hamm M.D. Giddiness [place] 788.41 Urinary Frequency Plan of Treatment Future Appointment(s):02/08/2019 1:30 pm - Nneka Park MD at [facility].02/01/2019 1:15 pm - Tobi Hedrick MD at [facility]08/05/2019 9:15 am - Chely Brennan DNP, RN, BAND TUMBLER- at [facility]01/27/2019 - Barbara Munoz M.D.R39.15 Urgency of urinationReferral:Sage Espinosa MD, packaging operator/Phys/BajkwF91.90 Unspecified osteoarthritis, unspecified siteR39.89 Other symptoms and signs involving the genitourinary systemNew Xrays:US Renal And Bladder, Ordered: 01/27US Transvaginal, Ordered: 01/27/19
--- NOTE | 2019-02-02 14:09 | ED ---
Abdominal Pain/Female - HPI Summary HPI Summary: 53 yo WF p/w "spamodic" RUQpain x fewdays at times radiating to epigastrium. HAd a BM this AM , has had resolving "loose stools" with an episode of a GI bug in the last 2 weeks with some urinary frquency and urgency, Denies f/c - History of Current Complaint Chief Complaint: UCAbdominalPain Stated Complaint: STOMACH PAIN Time Seen by Provider: 02/02/19 13:48 Hx Obtained From: Patient Hx Last Menstrual Period: 7 years ago - some post menopausal bleeding Onset/Duration: Sudden Onset Timing: Constant Severity Initially: Moderate Severity Currently: Moderate Pain Intensity: 5 Location: Discrete At: RUQ, Epigastric Radiates: No Character: Cramping, Colicy Aggravating Factor(s): Food Alleviating Factor(s): Nothing Associated Signs and Symptoms: Positive: Negative Allergies/Adverse Reactions: Allergies Allergy/AdvReac Type Severity Reaction Status Date / Time Sulfa (Sulfonamide Allergy Intermediate Rash Verified 02/02/19 13:47 Antibiotics) Home Medications: Home Medications Ibuprofen [Advil] 400 mg PO ONCE PRN 02/02/19 [History Confirmed 02/02/19] PMH/Surg Hx/FS Hx/Imm Hx Previously Healthy: Yes Endocrine/Hematology History: Denies: Hx Diabetes, Hx Thyroid Disease Cardiovascular History: Denies: Hx Congestive Heart Failure, Hx Hypertension, Hx Pacemaker/ICD Respiratory History: Denies: Hx Chronic Obstructive Pulmonary Disease (COPD) Comment Only: Hx Asthma - POSSIBLE NOT DIAGNOSED PER PATIENT, Other Respiratory Problems/Disorders - cough fever now with dx possible pneumonia GI History: Denies: Hx Ulcer History: Denies: Hx Renal Disease Sensory History: Denies: Hx Hearing Aid Psychiatric History: Denies: Hx Panic Disorder - Cancer History Hx Chemotherapy: No Hx Radiation Therapy: No - Surgical History Surgery Procedure, Year, and Place: Csections, abdominal surgery (ovarian cyst removal), sinus surgery Infectious Disease History: No Infectious Disease History: Reports: Traveled Outside the in Last 30 Days - descanso Denies: Hx Clostridium Difficile, Hx Hepatitis, Hx Human Immunodeficiency Virus (HIV), History Other Infectious Disease - Family History Known Family History: Positive: None - Social History Alcohol Use: Occasionally Substance Use Type: Reports: None Smoking Status (MU): Never Smoked Tobacco Review of Systems - ROS Summary Review of Systems Summary: Constitutional: Negative Skin: Negative Eyes: Negative ENT: Negative Cardiovascular: Negative Respiratory: Negative Gastrointestinal: RUQ tenderness, moderate Genitourinary: Negative Musculoskeletal: Negative Neurological: Negative Psychological: Normal All Other Systems Reviewed And Are Negative: Yes All Other Systems Reviewed And Are Negative: Yes Physical Exam - Summary Physical Exam Summary: Triage Information Reviewed: Yes Appearance: No Pain Distress Eye Exam: Normal ENT Exam: Normal Neck: Supple Respiratory: Lungs clear, Normal breath sounds Cardiovascular: Positive: RRR, S1, S2 Abdominal Exam: moderate RUQ tenderness, no rebound,no guarding, hypoactive BS Musculoskeletal Exam: Normal Neurological Exam: Normal Psychological Exam: Normal Skin Exam: Normal Vital Signs On Initial Exam: Initial Vitals Temp Pulse Resp BP Pulse Ox 37.2 C 66 18 108/82 100 02/02/19 13:37 02/02/19 13:37 02/02/19 13:37 02/02/19 13:37 02/02/19 13:37 Diagnostics - Vital Signs Vital Signs Temp Pulse Resp BP Pulse Ox 02/02/19 13:37 37.2 C 66 18 108/82 100 - Laboratory Lab Statement: Any lab studies that have been ordered have been reviewed, and results considered in the medical decision making process. Abdominal Pain Fem Course/Dx - Course Course Of Treatment: 1) RUQ pain- NEG for GB stoneor biliary pathology. XR reveals extensive fecal impaction, will need laxative for decompression and pain relief. 2) H/o urinary frequency- no record of Ucx or abx script, pt is postmenopausal with c/o vaginal atrophy, dryness and alteration in vag bacterial fidel, UA of pH is 8.5 with urianry sx- will tx for uncomplicated UTI with UCX sent for cx and willn tx with cipro - Diagnoses Provider Diagnoses: RUQ abdominal pain, Hx of urinary frequency Discharge - Sign-Out/Discharge Documenting (check all that apply): Patient Departure All imaging exams completed and their final reports reviewed: Yes - Discharge Plan Condition: Stable Disposition: HOME Prescriptions: Ciprofloxacin TAB* [Cipro 500 MG TAB*] 500 mg PO BID 5 Days #10 tab Magnesium CITRATE* [Citrate of Magnesia*] 300 ml PO ONCE 1 Days #1 btl Patient Education Materials: Fecal Impaction (ED), Urinary Urgency and Frequency (DC) Referrals: Sav Hamm MD [Primary Care Provider] - - Billing Disposition and Condition Condition: STABLE Disposition: Home
[2019-02-02 15:45] VITALS: BP 110/73
== END 2019-02-02 16:04 | disposition home or self-care (01) ==
LOC: UCEAST 13:14
DX: R10.13 Epigastric pain (principal); R10.11 Right upper quadrant pain; Z87.448 Personal history of other diseases of urinary system; Z88.2 Allergy status to sulfonamides
CPT/HCPCS: 74019; 76705; 81003; 87086; 99211; G0463

== ENCOUNTER 2019-03-31 07:39 | Day surgery (SDC) | payer OTHER ==
[2019-03-31] MEDS ORDERED: ceFAZolin 2 GM PREMIX in ORs 2 GM/50 ML BAG IVPB ONE (07:49)
[2019-03-31] MEDS ORDERED: Lidocaine 2% PF * 5 ML VIAL ONE (08:05)
[2019-03-31] MEDS ORDERED: Propofol* 10 MG/ML 20 ML BTL ONE (08:05)
[2019-03-31] MEDS ORDERED: fentaNYL* 50 MCG/ML 2 ML VIAL (100 MCG VIAL) ONE (08:06)
[2019-03-31] MEDS ORDERED: Midazolam* 1 MG/ML 2 ML VIAL (2 MG) ONE (08:06)
[2019-03-31] MEDS ORDERED: Bupivacaine 0.5%* 50 ML VIAL ONE (09:23)
[2019-03-31] MEDS ORDERED: Metoclopramide IV* 5 MG/ML 2 ML VIAL ONE (09:54)
[2019-03-31] MEDS ORDERED: Dexamethasone IV* 4 MG/ML 1 ML (4 MG) ONE (09:54)
[2019-03-31] MEDS ORDERED: Ondansetron INJ* 2 MG/ML VIAL ONE (09:54)
[2019-03-31] MEDS ORDERED: Ketorolac INJ* 30 MG/ML 1 ML VIAL ONE (09:54)
[2019-03-31] MEDS ORDERED: diPHENhydraMINE IV* 50 MG/ML 1 ml VIAL (BENADRYL) IV PRN (10:25)
[2019-03-31] MEDS ORDERED: oxyCODONE TAB* 5 MG TAB PO PRN (10:25)
[2019-03-31] MEDS ORDERED: Acetaminophen TAB* 325 MG PO PRN (10:25)
[2019-03-31] MEDS ORDERED: HYDROmorphone INJ1* 1 MG/ML SYRINGE IV PRN (10:25)
[2019-03-31] MEDS ORDERED: Naloxone* 0.4 MG/ML 1 ML VIAL IV PRN (10:25)
--- NOTE | 2019-03-31 11:02 | OP ---
Operative Report - Blank - Operative Report Date of Operation: 03/31/19 Note: PATIENT: Ya Arroyo DATE OF : 1965 DATE OF SURGERY: 03/31/2019 SURGEON: Tobi Hedrick MD COSMETICIAN: JOSE Mcclure, whos assistance was necessary for positioning, retraction, help with instrumentation, and closure. ANESTHESIOLOGIST: Dr. Rao PREOPERATIVE DIAGNOSIS: Left foot hallux rigidus POSTOPERATIVE DIAGNOSIS: Left foot hallux rigidus OPERATION: Left foot first metatarsophalangeal joint cheilectomy ANESTHESIA: General IMPLANTS: none TOURNIQUET TIME: Less than 1 hour with an ankle Esmarch tourniquet SPECIMENS: None ESTIMATED BLOOD LOSS: Minimal COMPLICATIONS: none STATUS: Stable from the operating room to the recovery room and then home. INDICATIONS FOR PROCEDURE: Ya has had persistent pain at her dorsal 1st MTP joint. Both operative and non-operative treatment alternatives were reviewed. Further, the nature and risks of surgery were reviewed in careful detail, in the office as well as the pre-operative holding area. Our discussions regarding the risks of surgery included, but were not limited to, infection, wound problems, nerve injury, neuroma, RSD, persistent symptoms, blood clot, nonunion, malunion, fracture, need for further surgery, failure of the surgery, and even the remote chance of catastrophic complication, including loss of limb. DESCRIPTION OF PROCEDURE: The patient was seen in the preoperative holding unit and informed written consent was obtained. The appropriate extremity was marked. The patient was then brought to the operating room and carefully positioned on the operating room table. Anesthesia was induced. All bony prominences were padded with great care. A chlorhexidine based pre-scrub was performed followed by a chloraprep prep and drape in standard sterile fashion. A surgical safety pause was then conducted in which we confirmed the appropriate patient, extremity, planned procedure, availability of equipment, indication and administration of prophylactic antibiotics, and DVT prophylaxis in the form of a compression boot on the non-surgical extremity. I began with an Esmarch exsanguination of the limb and placement of an ankle Esmarch tourniquet. I then made an approximately 4 cm incision overlying the first metatarsophalangeal joint dorsally. We mobilized the extensor hallucis longus tendon laterally and then came sharply through the dorsal capsule in line with the skin incision. We then exposed the metatarsal head, with care taken to protect the collateral ligaments. Inflamed synovium was excised with a 15 blade scalpel. I utilized an osteotome to remove approximately 20% of the dorsal first metatarsal head and in line with the first metatarsal shaft, removing the dorsal spur. This was contoured at the medial and lateral aspects of the osteotomy in order to prevent any sharp bony prominences. I then excised the dorsal aspect of the proximal phalanx at the joint with a rongeur. There were no spurs left or inflamed invaginating synovium. We were able to range his joint from 60 degrees plantarflexion to 60 degrees of dorsiflexion without any limitation or crepitus. The wounds were copiously irrigated and meticulously closed in layers utilizing 3-0 Monocryl and 3-0 nylon. A sterile dressing was then applied. The patient was then awakened from anesthesia and transferred to the recovery room in stable condition. There were no complications. All needle and sponge counts were correct at the end of the case. ATTESTATION: I attest I was present and scrubbed and performed the critical portions of the procedure myself. POSTOPERATIVE PLAN: The patient will remain heel weightbearing for anticipated duration of 2 weeks. Followup will be in 2 weeks for likely suture removal and Steri-Strip application.
[2019-03-31] MEDS ORDERED: Acetaminophen TAB* 325 MG ONE (11:04)
[2019-03-31 12:01] VITALS: BP 120/78
== END 2019-03-31 11:59 | disposition home or self-care (01) ==
LOC: OR 07:39
PROVIDERS: ATTEND Orthopaedic Surgery
DX: M20.22 Hallux rigidus, left foot (principal); G47.33 Obstructive sleep apnea (adult) (pediatric); E78.00 Pure hypercholesterolemia, unspecified; K76.0 Fatty (change of) liver, not elsewhere classified
CPT/HCPCS: A9270-GY; J0690; J1100; J1885; J2250; J2405; J2704; J2765; J3010; J3490

== ENCOUNTER 2019-07-02 18:52 | Emergency (ER) | payer OTHER ==
--- OUTSIDE RECORDS SUMMARY | 2019-07-02 18:55 | XMS REPORT | Continuity of Care Document ---
:1965 External Reference #:[id number] Author Name Pushpa Pinzon O.D. (transmitted by agent of provider Leonard Luis) Address [address] [place] [address] Care Team Providers Name Role Phone Sav Hamm M.D. 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 - Obstetrics & Care Team Information [employer] Restorer Gynecology Barbara Munoz M.D. - Internal Care Team Information [employer] Restorer Medicine Problems Active Problems Provider Date Nuclear senile cataract Samantha Barnes O.D. Onset: 04/29/2016 Vitreous opacities Samantha Barnes O.D. Onset: 04/29/2016 Myopia Samantha Barnes O.D. Onset: 04/29/2016 Presbyopia Samantha Barnes O.D. Onset: 04/29/2016 Regular astigmatism Pushpa Pinzon O.D. Onset: 06/18/2018 Tear film insufficiency Pushpa Pinzon O.D. Onset: 06/18/2018 Social History Type Date Description Comments Sex Unknown ETOH Use Drinks 3 Alcoholic Beverages Per Week Tobacco Use Start: Unknown Patient has never smoked Recreational Drug Use Denies Drug Use Smoking Status Reviewed: 06/24/19 Patient has never smoked Allergies, Adverse Reactions, Alerts Active Allergies Reaction Severity Comments Date Sulfa Antibiotics 04/29/2016 Inactive Allergies NKDA 04/29/2016 Medications Active Medications SIG Qnty Indications Ordering Provider Date Olopatadine HCL 1 drop every day 5ml H04.123 Pushpa Pinzon, 06/24/2019 0.1% both eyes as O.D. Solution needed Artificial Tears as needed Pushpa Pinzon, 06/17/2018 O.DRicardo 0.2-0.2-1% Solution Faby Allergy every day Unknown 180mg Tablets Misoprostol Take 2 Tablets By Unknown 200mcg Mouth AT One Time Tablets Azelastine HCL (Nasal) Unknown 0.15% Solution Immunizations Description No Information Available Vital Signs Description No Information Available Results Description No Information Available Procedures Date Code Description Status 06/24/2019 85564 Determination Of Refractive State Completed 06/24/2019 88617 Est Patient Comprehensive Exam Completed Medical Devices Description No Information Available Encounters Description No Information Available Assessments Date Code Description Provider 06/24/2019 H04.123 Dry eye syndrome of bilateral lacrimal glands Pushpa Pinzon O.D. 06/24/2019 H52.13 Myopia, bilateral Pushpa Pinzon O.D. 06/24/2019 H52.4 Presbyopia Pushpa Pinzon O.D. 06/24/2019 H52.223 Regular astigmatism, bilateral Pushpa Pinzon O.D. Plan of Treatment 06/24/2019 - Pushpa Pinzon O.D.H04.123 Dry eye syndrome of bilateral lacrimal glandsNew Medication:Olopatadine HCL 0.1 % - 1 drop every day both eyes as neededComments:Smoking can increase the risk of developing or worsening any eye related disease, as well as affect your overall health. If you are a smoker, we strongly recommend that you quit.If you are not a smoker, we strongly recommend that you do not start. Both of your eyes appear to be dry. Use artificial tears as directed. You can use the tears more often if you are reading a book or are on the computer,as we tend to blink less, making our eyes dry out more.[facility] offers a few items in our optical department to help alleviate dry eye symptoms.Follow up:2 Year Follow Up You can expect to have your eyes dilated at your next visit. If Dr. Pinzon orders any additional testing, it may require extra time. We recommend that you bring sunglasses, as dilation drops often make you light sensitive until they wear off. We always recommend you bring someone to drive you home if you are uncomfortable driving with your eyes dilated. If you have any questions before your next visit, feel free to call our office at .H52.13 Myopia, bilateralComments:You have Myopia, or near sightedness. I have given you a prescription for glasses.H52.4 PresbyopiaComments:You have presbyopia. This is when the lens in your eye loses the ability to change focus, and happens as we age. A pair of reading glasses will help you see up close.H52.223 Regular astigmatism, bilateralComments:Astigmatism is a common vision condition that happens when a person's cornea is not symmetrical. Dr. Pinzon has given you a prescription to correct for this. Functional Status Description No Information Available Mental Status Description No Information Available Referrals Description No Information Available
[2019-07-02 19:17] VITALS: BP 111/70
--- NOTE | 2019-07-02 19:37 | UC ---
Lower Extremity/Ankle HPI - HPI Summary HPI Summary: swelling left great toe old surgical site no pain full rom called MD who wanted her to get it checked to assure there was no infection - History of Current Complaint Chief Complaint: UCLowerExtremity Stated Complaint: TOE PAIN Time Seen by Provider: 07/02/19 19:35 Hx Obtained From: Patient Hx Last Menstrual Period: post ?: No Onset/Duration: Gradual Onset, Lasting Days - 3 Pain Intensity: 0 Pain Scale Used: 0-10 Numeric Aggravating Factor(s): Nothing Alleviating Factor(s): Nothing Able to Bear Weight: Yes - Allergies/Home Medications Allergies/Adverse Reactions: Allergies Allergy/AdvReac Type Severity Reaction Status Date / Time Sulfa (Sulfonamide Allergy Intermediate Rash Verified 04/21/19 15:29 Antibiotics) PMH/Surg Hx/FS Hx/Imm Hx Previously Healthy: Yes - Surgical History Surgical History: Yes Surgery Procedure, Year, and Place: Csections, abdominal surgery (ovarian cyst removal), sinus surgery - Family History Known Family History: Positive: None - Social History Occupation: Employed Full-time Lives: With Family Alcohol Use: Occasionally Substance Use Type: None Smoking Status (MU): Never Smoked Tobacco Have You Smoked in the Last Year: No Review of Systems All Other Systems Reviewed And Are Negative: Yes Constitutional: Positive: Negative Skin: Positive: Negative Eyes: Positive: Negative ENT: Positive: Negative Respiratory: Positive: Negative Cardiovascular: Positive: Negative Gastrointestinal: Positive: Negative Genitourinary: Positive: Negative Motor: Positive: Negative Neurovascular: Positive: Negative Musculoskeletal: Positive: Negative, Other: - swelling around old surgical site for bunionectomy left foot Neurological: Positive: Negative Psychological: Positive: Negative Is Patient Immunocompromised?: No Physical Exam Triage Information Reviewed: Yes Appearance: Well-Appearing, No Pain Distress, Well-Nourished Vital Signs: Initial Vital Signs Temp 98.1 F 07/02/19 19:10 Pulse 79 07/02/19 19:10 Resp 15 07/02/19 19:10 BP 111/70 07/02/19 19:10 Pulse Ox 98 07/02/19 19:10 Vital Signs Reviewed: Yes Eye Exam: Normal Eyes: Positive: Conjunctiva Clear ENT Exam: Normal ENT: Positive: Normal ENT inspection, Hearing grossly normal. Negative: Trismus , Muffled voice, Hoarse voice Dental Exam: Normal Neck exam: Normal Neck: Positive: Supple, Nontender, No Lymphadenopathy Respiratory Exam: Normal Respiratory: Positive: Chest non-tender, No respiratory distress, No accessory muscle use Cardiovascular Exam: Normal Cardiovascular: Positive: RRR, Pulses Normal, Brisk Capillary Refill Musculoskeletal Exam: Normal Musculoskeletal: Positive: Strength Intact, ROM Intact, No Edema Neurological Exam: Normal Neurological: Positive: Alert, Muscle Tone Normal Psychological Exam: Normal Skin: Positive: Other - no redness streaking fever, erythema at site of older surgery but does have some swellinh that is non tender Lower Extremity Course/Dx - Course Course Of Treatment: ice, elevation, firm shoes--follow with orthopedic MD on Thursday as planned - Differential Dx/Diagnosis Provider Diagnosis: Swelling of first metatarsophalangeal (MTP) joint of left foot Discharge - Sign-Out/Discharge Documenting (check all that apply): Patient Departure All imaging exams completed and their final reports reviewed: No - Discharge Plan Condition: Stable Disposition: HOME Patient Education Materials: R.I.C.E. Treatment (ED), Swollen Joint (ED) Referrals: Barbara Munoz MD [Primary Care Provider] - Additional Instructions: Follow with surgeon Thursday as planned - Billing Disposition and Condition Condition: STABLE Disposition: Home
== END 2019-07-02 20:23 | disposition home or self-care (01) ==
LOC: UCEAST 18:52
DX: R22.42 Localized swelling, mass and lump, left lower limb (principal); Z88.2 Allergy status to sulfonamides
CPT/HCPCS: 99211; G0463

== ENCOUNTER 2019-09-22 08:57 | Observation (INO) | payer OTHER ==
--- NOTE | 2019-09-09 10:04 | HP ---
HISTORY AND PHYSICAL: DATE OF ADMISSION/SURGERY: 09/22/19 DATE OF OFFICE VISIT: 09/09/19 SURGEON: Katrin Caro MD.* (DICTATED BY JOSE DILLARD) PROCEDURE: Right total hip arthroplasty. CHIEF COMPLAINT: Right hip pain. HISTORY OF PRESENT ILLNESS: Ms. Flynn is a 54-year-old female with continued complaints of right hip pain. She has failed conservative treatment and elected to proceed with a right total hip arthroplasty. PAST MEDICAL HISTORY: Sleep apnea. PAST SURGICAL HISTORY: 1. Ovarian cyst removal. 2. Sinus surgery. 3. . 4. Left foot surgery. 5. Cervical biopsy. CURRENT MEDICATIONS: None. ALLERGIES: SULFA drugs. FAMILY HISTORY: Breast cancer, melanoma, and coronary artery disease. SOCIAL HISTORY: She is a 54-year-old female. She lives with her . She does not smoke or use drugs. She uses occasional alcohol. REVIEW OF SYSTEMS: A complete 14-point review of systems was reviewed with the patient and is all negative or noncontributory. She denies a history of DVT, PE , hepatitis, HIV, or anesthesia problems. PHYSICAL EXAMINATION GENERAL: She is well developed, well nourished, in no acute distress. VITAL SIGNS: She stands 66 inches tall, weighs 136 pounds. Her blood pressure is 124/74, heart rate is 61. HEENT: Normocephalic, atraumatic. NECK: Supple. No palpable lymph nodes. PULMONARY: The lungs are clear to auscultation bilaterally. CARDIO: Regular rate and rhythm. Strong S1, S2. ABDOMEN: Soft, nontender, nondistended. NEUROLOGICAL: She is alert and oriented x3. MUSCULOSKELETAL: Right lower extremity: The skin is intact. There are no open wounds or abrasions. She walks with a slightly antalgic-type gait favoring her right hip. She has 90 degrees of hip flexion, 0 degrees of internal rotation, 20 degrees of external rotation all reproducing groin pain. She is able to dorsiflex and plantarflex. She has 2+ dorsalis pedis pulse and intact sensation. ASSESSMENT AND PLAN: Ms. 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 She has failed conservative treatment and elected to proceed with a right total hip arthroplasty. The surgery is scheduled for 09/22/[address] Caro. The risks and benefits were discussed with the patient at today's visit and all of her questions were answered. She will follow up with Dr. Caro 2 weeks after the surgery. JOSE DILLARD [id number]/[facility] #: [id number] MTDRona
[~2019-09-22 08:57] MED LIST: Acetaminophen TAB* 325 MG PO ONE; Buffered Lidocaine 1% SYRIN* 1 ML/SYRINGE INTRADERM ONE; Dexamethasone TAB* 4 MG PO ONE; DiMENhydriNATE IV* 50 MG/ML VIAL IV PUSH PRN; Famotidine IV* 10 MG/ML 2 ML (20 mg) IV ONE; Gabapentin CAP(*) 400 MG PO ONE; HYDROmorphone INJ1* 1 MG/ML SYRINGE IV PRN; Lactated Ringers 1000 ML Bag* 1,000 ML IV SCH; Naloxone* 0.4 MG/ML 1 ML VIAL IV PRN; Ondansetron ODT TAB* 4 MG PO ONE; PROCHLORPERAZINE INJ 5 MG/ML 2 ML VIAL IV PRN; Scopolamine 1.5 mg* PATCH TRANSDERM PRN; Tranexamic Acid 1,000 MG in NS 0.9% 50 ML IV ONE; celeCOXIB CAP* 100 MG PO ONE; fentaNYL* 50 MCG/ML 2 ML VIAL (100 MCG VIAL) IV PRN; oxyCODONE TAB* 5 MG TAB PO PRN
[2019-09-22] MEDS ORDERED: KETAMINE HCL* 50 MG/ML 10 ML VIAL ONE (09:02)
[2019-09-22] MEDS ORDERED: Midazolam* 1 MG/ML 5 ML VIAL (5 MG) ONE (09:02)
[2019-09-22] MEDS ORDERED: fentaNYL* 50 MCG/ML 2 ML VIAL (100 MCG VIAL) ONE (09:02)
[2019-09-22] MEDS ORDERED: celeCOXIB CAP* 100 MG ONE (09:29)
[2019-09-22] MEDS ORDERED: Dexamethasone TAB* 4 MG ONE (09:30)
[2019-09-22] MEDS ORDERED: Acetaminophen TAB* 325 MG ONE (09:30)
[2019-09-22] MEDS ORDERED: Ondansetron ODT TAB* 4 MG ONE (09:30)
[2019-09-22] MEDS ORDERED: Buffered Lidocaine 1% SYRIN* 1 ML/SYRINGE INTRADERM ONE (09:31)
[2019-09-22] MEDS ORDERED: ceFAZolin 2 GM in NS PREMIX(*) 2 GM/100 ML BAG IVPB ONE (09:31)
[2019-09-22] MEDS ORDERED: Gabapentin CAP(*) 400 MG PO ONE (09:31)
[2019-09-22] MEDS ORDERED: Famotidine IV* 10 MG/ML 2 ML (20 mg) ONE (09:31)
[2019-09-22] MEDS ORDERED: Glycopyrrolate IV* 0.2 MG/ML 1 ML VIAL ONE (13:18)
[2019-09-22] MEDS ORDERED: EPHEDrine (Pressors)* 50 MG/ML VIAL ONE (13:18)
[2019-09-22] MEDS ORDERED: Bupivacaine 0.5% SDV PF* 30ML VIAL ONE (13:22)
[2019-09-22] MEDS ORDERED: Propofol* 500 MG/50 ML BTL ONE (13:22)
[2019-09-22] MEDS ORDERED: Phenylephrine 10 MG/ML VIAL* 1 ML VIAL ONE (13:22)
[2019-09-22] MEDS ORDERED: Ondansetron INJ* 2 MG/ML VIAL IV PRN (14:02)
[2019-09-22] MEDS ORDERED: diPHENhydraMINE IV* 50 MG/ML 1 ml VIAL (BENADRYL) IV PRN (14:02)
[2019-09-22] MEDS ORDERED: diPHENhydraMINE PO* 25 MG PO PRN (14:02)
[2019-09-22] MEDS ORDERED: oxyCODONE TAB* 5 MG TAB PO PRN (14:02)
[2019-09-22] MEDS ORDERED: Ondansetron ODT TAB* 4 MG PO PRN (14:02)
[2019-09-22] MEDS ORDERED: Magnesium Hydroxide LIQ* 30 ML UDC PO PRN (14:02)
[2019-09-22] MEDS ORDERED: Acetaminophen TAB* 325 MG PO PRN (14:02)
[2019-09-22] MEDS ORDERED: DiMENhydriNATE IV* 50 MG/ML VIAL ONE (14:03)
[2019-09-22] MEDS ORDERED: Fluticasone NASAL SPRAY 50MCG* 16 gm SPRAY BTL BOTH NARES PRN (14:08)
--- NOTE | 2019-09-22 15:33 | PN ---
Progress Note - Progress Note Date of Service: 09/22/19 Note: Pt seen in PACU POD 0, she feels well no pain. Sensation has not yet returned to lower extremities, not yet able to df/pf. Denies CP, SOB, dizziness, nausea.
--- NOTE | 2019-09-22 15:50 | PN ---
Progress Note - Progress Note Date of Service: 09/22/19 Note: resting comfortably in bed; pain well controlled; able to DF/PF, 2+ DP pulse, intact sensation
[2019-09-22] MEDS: Lactated Ringers 1000 ML Bag* 1,000 ML IV SCH (16:18)
--- NOTE | 2019-09-22 17:06 | OP ---
Operative Report - Blank - Operative Report Date of Operation: 09/22/19 Note: RONN PATTERSON 1965 Date Of Surgery: 09/22/19 Katrin Caro MD Fish Cutting Machine Operator: Pedro GARCIA did help throughout the procedure with preparation of the hip, wound retraction, manipulation of the hip, and wound closure. Anesthesiologist: Ermias Whiting MD Anesthesia Type: Spinal Preoperative Diagnosis: Right severe degenerative osteoarthritis of the hip Postoperative Diagnosis: As above Procedure Performed: Right Total Hip Arthroplasty Complications: None Specimen: Femoral head and acetabular reamings sent to pathology. Hardware used: This is uncemented [place] total hip arthroplasty hardware for the femur a size 3 accolade II with 127 neck angle femoral component, for the acetabulum a size 48 D trident II tritanium cluster hole shell with one 20 mm screw, for the insert a size 32 D trident X3 polyethylene insert, and for the femoral head a size 32 + 0 ceramic biolox V40 femoral head. Brief history/Indication: RONN PATTERSON was known in clinic and had a history of severe right hip pain. She failed conservative treatment with anti- inflammatories, pain pills, intra-articular injections and physical therapy. She elected to undergo right total hip arthroplasty due to continued pain and decreased quality of life. Radiographs showed severe end stage osteoarthritis of the hip with bone on bone contact. Informed consent was obtained from the patient. She understood the risks of surgery included but were not limited to: bleeding, infection, damage to nearby structures, intraoperative fracture, nerve palsy, failure of the hardware, early loosening, stiffness or loss of motion, dislocation, leg length discrepancy, anesthesia complications, stroke, heart attack, blood clot and . She wished to proceed. Intra-Operative findings: Intraoperatively the patient was noted to have severe loss of cartilage of the acetabulum and femoral head. Description of the Procedure: RONN PATTERSON was identified in the preanesthesia unit. Her right hip was marked as the correct operative side. Informed consent was signed and placed in the chart. The patient was taken to the operating room and placed under anesthesia without complication. A shah catheter was placed. The patient was placed on the peg board with all bony prominences well padded. The right lower extremity was prepped and draped in the usual sterile fashion. Preoperative time -out was made to correctly identify the patient, side and site. Appropriate intraoperative antibiotics were given within one hour of incision. A standard posterior incision was made and carried sharply down to the lateral fascia. A new 10 blade was used to make an incision in the fascia in line with the skin incision. A charnley retractor was placed. The piriformis and conjoined tendons were identified and elevated off the posterolateral femur using electrocautery. These were tagged with number 5 Ethibond. Next electrocautery was used to make a posterolateral capsular flap and this was tagged with number 5 Ethibonds. The hip was carefully dislocated. Lesser trochanter to the center of the femoral head was measured at 52 mm. The oscillating saw was used to make the femoral neck cut. The femoral head was carefully removed. The femur was retracted anteriorly and the acetabular retractors were placed. Long-handled knife was used to sharply remove any remaining labrum from the acetabular rim. The acetabulum was sequentially reamed up to a size 48. A bleeding subchondral bone bed was obtained. A trial liner was placed and had excellent fit and stability. A 48D cup with a single 20 mm screw was placed and had excellent stability with appropriate anteversion and abduction angle. A size 32 D polyethylene liner was impacted into the acetabular shell. The liner was checked for stability and was stable. Next attention was turned to preparation of the femoral canal. A canal finder was used to enter the proximal femur. The femoral canal was sequentially broached up to a size 3 femoral broach trial. A trial neck and 32 + 0 trial femoral head was chosen. Lesser trochanter to center of the femoral head measurement was satisfactory. The hip was reduced and taken through a range of motion. The hip was stable in all positions with good soft tissue tension and appropriate leg lengths. The hip was dislocated and all trials were removed. The final implant chosen was a accolade size 3 with 127 neck angle. This stem was impacted into the femoral canal without difficulty. The stem was stable with appropriate anteversion. The femoral head chosen was a 32 +0 ceramic biolox head. The head was impacted onto the femoral neck without difficulty. The final lesser trochanter to center of the femoral head measurement was satisfactory. The hip was reduced and taken through a range of motion. The hip was stable in all positions with good soft tissue tension and appropriate leg lengths. The hip was copiously irrigated with sterile saline. The previously tagged capsule and tendons were repaired to the posterolateral femur through two trochanteric drill holes. The lateral fascia layer was closed using number 1 vicryls. The rest of the incision was closed in a layered fashion using 0 and 2-0 vicryls. The skin was closed using 3-0 monocryl suture and Dermabond. Sterile adaptic, 4x4s and paper tape was used to cover the incision. The patients anesthesia was reversed without difficulty. She was taken to the PACU in stable condition. Intended weight-bearing will be as tolerated with posterior hip precautions.
[2019-09-22] MEDS: traMADol TAB* 50 MG PO PRN (17:09)
[2019-09-22] MEDS: oxyCODONE/Acetamin 5/325 MG* TAB PO PRN (20:14)
[2019-09-22] MEDS: ceFAZolin 1 GM ADVAN(*) 1 GM in NS 0.9% 50 ML* 50 ML IVPB SCH (20:14)
[2019-09-22] MEDS: Cyclobenzaprine TAB* 10 MG PO PRN (20:15)
[2019-09-22] MEDS: Magnesium Hydroxide LIQ* 30 ML UDC PO SCH (20:16)
[2019-09-22] MEDS: Docusate CAP* 100 MG PO SCH (20:16)
[2019-09-23] MEDS: traMADol TAB* 50 MG PO PRN (00:39)
[2019-09-23] MEDS: oxyCODONE/Acetamin 5/325 MG* TAB PO PRN ×5 (01:06→18:16)
[2019-09-23] MEDS: Lactated Ringers 1000 ML Bag* 1,000 ML IV SCH (02:17)
[2019-09-23] MEDS: ceFAZolin 1 GM ADVAN(*) 1 GM in NS 0.9% 50 ML* 50 ML IVPB SCH ×2 (04:00→12:48)
[2019-09-23 05:45] LABS: Hematocrit 32 % (35-47); Hemoglobin 10.7 g/dL (12.0-16.0); Mean Platelet Volume 8.3 fL (7.4-10.4); Platelet Count 215 10^3/uL (150-450)
[2019-09-23 06:01] LABS: BUN/Creatinine Ratio 19.4 (8-20); EGFR African American 102.5 (>60); EGFR Non-African American 84.7 (>60); Potassium 4.4 mmol/L (3.5-5.0)
[2019-09-23] MEDS: Docusate CAP* 100 MG PO SCH (08:22)
[2019-09-23] MEDS: Magnesium Hydroxide LIQ* 30 ML UDC PO SCH (08:24)
[2019-09-23] MEDS ORDERED: Apixaban* 2.5 MG TAB PO SCH (09:00)
[2019-09-23] MEDS ORDERED: Vitamin THERAPEUTIC TAB PO SCH (09:00)
--- NOTE | 2019-09-23 09:37 | PN ---
Progress Note - Progress Note Date of Service: 09/23/19 SOAP: Subjective: [Pt was seen this am sitting in chair. She states that she is doing well. She is currently finding pain relief with oxycodone. She states that she is doing well. She denies any chest pain, SOB, nausea or vomiting.] Objective: [General: Pt is alert and oriented x 3. NAD MSK, RLE: Inspection of the right hip reveals dressing that is c/d/i. NVI distally. 2+ DP pulse. Calf is soft and non tender. Dressing changed, Incision is c/d/i] Vital Signs Temp 98.7 F 09/23/19 07:34 Pulse 67 09/23/19 07:34 Resp 16 09/23/19 08:30 BP 104/58 09/23/19 07:34 Pulse Ox 97 09/23/19 08:30 Intake & Output 09/22/19 09/23/19 09/23/19 18:59 06:59 18:59 Intake Total 640 1204 880 Output Total 1999 2220 300 Balance -1360 -1016 580 Weight 138 lb 12.8 oz Intake: IV Fluids 100 946 LR 946 NS 100ML, Cefazolin 2G 100 IVPB 58 ABX - CEFAZOLIN 58 Oral 540 200 880 Output: Urine 300 [place] 1999 2220 Assessment: [POD 1 RTKA] Plan: [Continue with Eliquis x 30 days Oxycodone for pain relief. She discussed the possibility of using Tramadol. We will assess later in the day. PT Possible DC home today. ]
--- NOTE | 2019-09-23 13:33 | DS ---
Orthopedic Discharge Summary - Discharge Summary Date of Admission:09/22/19 Date of Discharge: 09/23/19 Date of Surgery: 09/22/19 Attending Orthopedic Provider: Dr. Caro Pre-operative Diagnosis: Right hip osteoarthritis Operative Procedure: right total hip replacement Disposition of Patient: home Condition of Patient: good History: RONN PATTERSON is a 54 year old F with years of increasingly severe right hip pain. Patient has failed conservative management and has elected to undergo a right total hip replacement Hospital Course: RONN was admitted to [facility] on 09/22/19. Patient underwent a right total hip arthroplasty without complication followed by a brief recovery in PACU and transfer to the Short Stay Surgical Unit in stable condition. Our hospitalist service, physical therapy and occupational therapy also participated in this patients care. Post-op day 1: patient was alert and in no acute distress. Dressing was clean, dry and intact. Operative extremity dorsiflexion and plantarflexion intact, sensation intact to light touch distally, DP2+. Dressing was changed, incision was clean, dry and intact. Patient was deemed to be medically and orthopedically stable for discharge. Physical therapy goals were met. Home Medications Medication Instructions Recorded Confirmed Type Acetaminophen [Acetaminophen Extra 2 tab PO TID PRN 09/09/19 09/09/19 History Strength] Cyanocobalamin TAB* [Vitamin B12 1,000 mcg PO 1200 09/09/19 09/22/19 History TAB*] Fluticasone NASAL SPRAY 50MCG* 2 spray BOTH NARES DAILY PRN 09/09/19 09/22/19 History Flonase NASAL SPRAY 50MCG* Discharge Instructions following Orthopedic Surgery: Activity: * Weight Bearing as tolerated * Continue physical therapy and occupational therapy exercises as shown Hip replacements: Continue Hip Precautions- do not cross legs or bend greater than 90 degrees/squat Wound care: * OK to shower on post-op day 3, no bathing, swimming, or submerging wound. * Use gentle soap, pat dry. Cover with gauze, DIANE wrap or tape. * Visiting home nurse to do wound checks. Call Orthopedic office for: * Increased drainage * Redness * Increased pain * Fever Go to ER with shortness of breath or chest pain. Diet: * Regular diet * Increase fluids and fiber to prevent constipation. * Continue to use stool softeners, call office if no bowel motion within 48 hours. Medications See Home Medication List in your packet for medications that you should take after discharge. DVT Prophylaxis: Eliquis Dosin.5 mg, 1 tab every 12 hours x 30 days Pain Control: Percocet Dosin/325 mg 1-2 tabs by mouth every 4-6 hours as needed for pain. Maximum of 10 tabs per day. Please note that Percocet contains Tylenol (acetaminophen). Maximum daily dose of Tylenol is 4000 mg from all sources. Antibiotics are required prior to any dental work. FOLLOW UP: Follow up with [DENZEL] Within 10-14 days, call for appointment Please call our office with any questions or concerns ([phone])
[2019-09-23] MEDS: Cyclobenzaprine TAB* 10 MG PO PRN (15:50)
[2019-09-23 16:09] VITALS: BP 105/58
[2019-09-24] MEDS ORDERED: Bisacodyl SUPP* 10 MG SUPP PR PRN (14:02)
[2019-09-25] MEDS ORDERED: Scopolamine PATCH Remove* 1 NOTE MISC PATCH OFF ONE (06:07)
== END 2019-09-23 19:00 | disposition home or self-care (01) ==
LOC: OR 08:57 → SSU 14:05 → EDSTATUS 15:45 → SSU 16:16 → INTOOBSV 16:16 → UNDOADMOB 16:16
PROVIDERS: ADMIT Orthopaedic Surgery Adult Reconstructive Orthopaedic Surgery; ATTEND Orthopaedic Surgery Adult Reconstructive Orthopaedic Surgery
DX: M16.11 Unilateral primary osteoarthritis, right hip (principal); Z86.718 Personal history of other venous thrombosis and embolism; M25.551 Pain in right hip; G47.30 Sleep apnea, unspecified; Z79.899 Other long term (current) drug therapy
CPT/HCPCS: 36415; 80048; 85014; 85018; 85049; 88304; 88311; 96365; 96375; A9270-GY; C1713; C1776; G0378; J0690; J1240; J2250; J2704; J3010; J3490; J8540